=== PATIENT | male | born 1990 | race Caucasian/White ===

== ENCOUNTER 2017-08-10 16:00 | Inpatient (IN) | payer OTHER ==
--- NOTE | 2017-08-10 16:12 | ED Physician Chart ---
ED Chief Complaint/HPI - Patient Information Date Seen:: 08/10/17 Time Seen:: 16:01 Chief Complaint:: Intermittent abdominal cramp for 4 days. History of Present Illness:: Pt walked in for the above reason. Pt has had intermttent diffuse abdominal cramp for past 4 days. No N/V/D. Last BM at about 1 pm, normal in color/ consistency but small in quantity. No fever or lightheadedness. No dysuria, urgency or frequency with urination. No gross hematuria. Abdominal cramp can be precipitated and aggravated with food ingestion, improved with lying down. Pt's diet primarily consists of meat with little vegetable. Pt states that his pain at the present is tolerable and does not need pain control. Allergies:: Allergies Allergy/AdvReac Type Severity Reaction Status Date / Time No Known Allergies Allergy Verified 08/10/17 16:04 Vitals:: see Nurse Note. Historian:: Patient Family MD/PCP:: Dr. Bennett LMP:: N/A Review:: Nurse's Note Reviewed ED Review of Systems - Review of Systems General/Constitutional: No fever, No chills, No weight loss, No weakness, No edema, No loss of appetite Skin: No skin lesions, No rash, No bruising Head: No headache, No light-headedness Eyes: No loss of vision, No pain, No diplopia ENT: No earache, No nasal drainage, No sore throat, No tinnitus Neck: No neck pain, No swelling, No stiffness, No mass noted Cardio Vascular: No chest pain, No palpitations, No PND, No orthopnea, No edema Pulmonary: No SOB, No cough, No wheezing GI: No nausea, No vomiting, No diarrhea, Pain, No melena, No hematochezia, No constipation, No hematemesis G/U: No dysuria, No frequency, No hematuria Musculoskeletal: No bone or joint pain, No back pain, No muscle pain Endocrine: No polyuria, No polydipsia Psychiatric: No prior psych history Hematopoietic: No bruising, No lymphadenopathy Allergic/Immuno: No urticaria, No angioedema Neurological: No syncope, No focal symptoms, No weakness, No paresthesia, No headache, No dizziness, No confusion ED Past Medical History - Past Medical History Past Medical History: No significant medical hx Family History: Diabetes Melitus (father, MGF), Cancer (MGM) Social History: Smoker (/ ppd. Patient has been informed about health risks associated with chronic tobacco use and has been advised to quit. Pt has been encouraged to enroll in a smoking cessation program. Pt acknowledges understanding.), Alcohol (rare), Illicit Drug Use (marijuana. The has been informed about healthr risks associated with marijuana use and has been informed to quit. Pt acknowledges understanding.), Single, Employed, Other (Pt with his significant other and children.) Employment:: hole digger truck driver. Surgical History: other (L knee arthroscopic surgery at age 14) Psychiatricy History: None Medication: Reviewed Family Medical History - Family Member Maternal History Unknown: Yes ED Physical Exam - Physical Examination General/Constitutional: Awake, Well-developed, well-nourished, Alert, No distress, GCS 15, Non-toxic appearing, Ambulatory Other Gen/Cons comments:: Breathes comfortably, speaks clearly, interacts normally, and ambulates without difficulty. Head: Atraumatic Eyes: Lids, conjuctiva normal, PERRL, EOMI Other Eyes comments:: Anicteric sclera. Skin: Nl inspection, No rash, No skin lesions, No ecchymosis, Well hydrated, No lymphadenopathy ENMT: External ears, nose nl, Nasal exam nl, Lips, teeth, gums nl, Oropharynx nl Neck: Nontender, Full ROM w/o pain, No nuchal rigidity, No mass, No stridor Respiratory: Nl effort/Exclusion, Clear to Auscultation, No Wheeze/Rhonchi/Rales Cardio Vascular: RRR, No murmur, gallop, rubs, NL S1 S2 GI: No organomegaly, No hernia, Normal BS's, Nondistended, No mass/bruits, No McBurney tenderness Other GI comments:: Obese but soft. Vague diffuse tenderness at mid lower abdomen, primarily in LLQ. Normactive BS x 4. No R/G. No HSM. : No CVA tenderness Extremities: No tenderness or effusion, Full ROM, normal strength in all extremities, No edema, Normal digits & nails Neuro/Psych: Alert/oriented (oriented x 3.), Mood normal, Normal gait, No focal deficits Misc: normal gait, Normal back, No paraspinal tenderness ED Labs/Radiology/EKG Results - Lab Results Results: Laboratory Tests 08/10/17 08/10/17 08/10/17 16:36 16:36 16:36 WBC 15.5 H RBC 5.05 Hgb 14.8 Hct 43.5 MCV 86.2 MCH 29.2 MCHC Differential 33.9 RDW 12.2 Plt Count 213 MPV 8.1 Neutrophils % 80.5 H Lymphocytes % 10.1 L Monocytes % 7.9 Eosinophils % 1.4 Basophils % 0.1 PT 10.0 INR 0.96 PTT (Actin FS) 27.0 Sodium 136 Potassium 4.0 Chloride 109 H Carbon Dioxide 24.2 Anion Gap 6.8 L BUN 12 Creatinine 0.8 Est GFR ( Amer) > 60.0 Est GFR (Non-Af Amer) > 60.0 BUN/Creatinine Ratio 15.0 Glucose 94 Whole Bld Lactic Acid Calcium 8.6 Total Bilirubin 0.6 AST 12 L ALT 13 Alkaline Phosphatase 65 Total Protein 6.6 Albumin 4.0 L Globulin 2.6 Albumin/Globulin Ratio 1.5 Amylase 20 L Lipase 7 L Urine Source Urine Color Urine Clarity Urine pH Ur Specific [place] Urine Protein Urine Glucose (UA) Urine Ketones Urine Blood Urine Nitrate Urine Bilirubin Urine Urobilinogen Ur Leukocyte Esterase Urine RBC Urine WBC Ur Epithelial Cells Urine Bacteria Urine Mucus 08/10/17 08/10/17 16:36 16:50 WBC RBC Hgb Hct MCV MCH MCHC Differential RDW Plt Count MPV Neutrophils % Lymphocytes % Monocytes % Eosinophils % Basophils % PT INR PTT (Actin FS) Sodium Potassium Chloride Carbon Dioxide Anion Gap BUN Creatinine Est GFR ( Amer) Est GFR (Non-Af Amer) BUN/Creatinine Ratio Glucose Whole Bld Lactic Acid 0.67 Calcium Total Bilirubin AST ALT Alkaline Phosphatase Total Protein Albumin Globulin Albumin/Globulin Ratio Amylase Lipase Urine Source CLEAN C Urine Color YELLOW Urine Clarity CLEAR Urine pH 6.0 Ur Specific [place] 1.020 Urine Protein NEGATIVE Urine Glucose (UA) NEGATIVE Urine Ketones NEGATIVE Urine Blood NEGATIVE Urine Nitrate NEGATIVE Urine Bilirubin NEGATIVE Urine Urobilinogen 0.2 Ur Leukocyte Esterase NEGATIVE Urine RBC NONE SEEN Urine WBC 0-2 Ur Epithelial Cells OCCASIONAL Urine Bacteria NONE SEEN Urine Mucus FEW - Radiology Results Results: CT abdomen and pelvis without contrast: Diverticulitis of the sigmoid colon, surrounding inflammatory changes and trace free fluid. No abscess or free air. Fatty liver. 3 mm right renal stone, no hydro. Retro-aortic left renal vein incidentally noted. Official report per Dr. Sander العراقي, radiologist. ED Septic Shock - . Is Septic Shock (SBP<90, OR Lactate>4 mmol\L) present?: No ED Reassessment (Disposition) - Reassessment Reassessment:: 1657 Pt states that his pain is more intense now. Pt requests pain control. [address] report just became available. Lab and CT findings have been reviewed with pt. Management plan has been discussed. Pt requests more pain control. Pt is to be given Dilaudid one mg IV. Pt is to be given Zosyn 3.375 gm also. 2019 Pt feels better and does not need more pain control. Pt still has significant tenderness in LLQ with palpation. Admitting physician is to be contacted. 2027 Case was discussed with Dr. Saunders with pertinent H & P, CT and lab findings reviewed. Pt is to be admitted Med/Surg Unit under his care. Reassessment Condition:: Improved - Diagnosis Diagnosis:: Diverticulitis. Incidental findings of R renal stone. - Patient Disposition Admitted to:: Med/Surg Time:: 20:30 Condition at Disposition:: Stable, Improved
[2017-08-10 16:43] LABS: % BASOPHILS 0.1 % (0.0-2.0); % EOSINOPHILS 1.4 % (0.0-5.0); % LYMPHOCYTES 10.1 % (20.0-50.0); % MONOCYTES 7.9 % (2.0-10.0); % NEUTROPHILS 80.5 % (40.0-80.0); HEMATOCRIT 43.5 % (41.0-60); HEMOGLOBIN 14.8 gm/dL (12-16); MEAN CELL VOLUME 86.2 fl (80-99); MEAN CORPUSCULAR HEMOGLOBIN 29.2 pg (26.0-30.0); MEAN CORPUSCULAR HGB CONC 33.9 pg (28.0-36.0); MEAN PLATELET VOLUME 8.1 fl; NEUTROPHILE ABSOLUTE 12.5 Th/cmm (1.8-8.0); PLATELET COUNT 213 Th/cmm (150-400); RED BLOOD COUNT 5.05 Mil/cmm (4.30-5.70); RED CELL DISTRIBUTION WIDTH 12.2 % (11.5-20.0)
[2017-08-10 16:47] LABS: WHITE BLOOD COUNT 15.5 Th/cmm (4.8-10.8)
[2017-08-10 16:55] LABS: INR 0.96 (0.5-1.4)
[2017-08-10 16:58] LABS: ALB/GLOB RATIO 1.5 (1.0-1.8); ALKALINE PHOSPHATASE 65 U/L (34-104); AMYLASE SERUM 20 U/L (29-103); ANION GAP 6.8 (7.0-16.0); BILIRUBIN,TOTAL 0.6 mg/dL (0.3-1.0); BUN - UREA NITROGEN 12 mg/dL (7-25); CALCIUM SERUM 8.6 mg/dL (8.6-10.3); CARBON DIOXIDE 24.2 mEq/L (21.0-31.0); CHLORIDE 109 mEq/L (98-107); CREATININE - SERUM 0.8 mg/dL (0.7-1.3); GLUCOSE 94 mg/dL (70-105); LIPASE 7 U/L (11-82); SGOT 12 U/L (13-39); SGPT/ALT 13 U/L (7-52); SODIUM SERUM 136 mEq/L (136-145)
[2017-08-10] MEDS ORDERED: HYDROmorphone 1 mg/mL 1mL Syr IVP STA ×2 (16:59→18:54)
[2017-08-10 17:01] LABS: URINE BILIRUBIN NEGATIVE (NEGATIVE); URINE BLOOD NEGATIVE (NEGATIVE); URINE GLUCOSE (UA) NEGATIVE (NEGATIVE); URINE KETONE NEGATIVE (NEGATIVE); URINE PROTEIN NEGATIVE (NEGATIVE); URINE UROBILINOGEN 0.2 E.U./dL (0.2 - 1.0)
[2017-08-10] MEDS ORDERED: HYDROmorphone 1 mg/mL 1mL Syr ONE ×2 (17:01→18:57)
[2017-08-10 17:03] LABS: URINE COLOR YELLOW
[2017-08-10 17:05] LABS: URINE BACTERIA NONE SEEN /hpf (NONE SEEN); URINE EPITHELIAL CELLS OCCASIONAL /lpf (FEW); URINE RBC NONE SEEN /hpf (0-5); URINE WBC 0-2 /hpf (0-5)
[2017-08-10] MEDS ORDERED: Piperacillin Sodium/Tazobact 3.375 gm Vial IV ONE (21:06)
[2017-08-10] MEDS ORDERED: Sodium Chloride 0.9% 1,000 ML IV ONE (21:18)
[2017-08-10] MEDS ORDERED: HYDROmorphone 1 mg/mL 1mL Syr IVP PRN (21:18)
[2017-08-10] MEDS ORDERED: metroNIDAZOLE 500 mg/100 mL Premix Bag IV SCH (21:30)
[2017-08-10] MEDS ORDERED: HYDROmorphone 1 mg/mL 1mL Syr IVP ONE (21:52)
[2017-08-10] MEDS: Levofloxacin 750mg/150mL 750 MG/150 ML BAG IV SCH (23:29)
[2017-08-11] MEDS: HYDROmorphone 1 mg/mL 1mL Syr IVP PRN ×2 (01:45→07:39)
[2017-08-11] MEDS: metroNIDAZOLE 500 mg/100 mL Premix Bag IV SCH ×2 (04:54→12:19)
--- NOTE | 2017-08-11 07:35 | Diagnostic Imaging Report ---
Exam: CT examination abdomen pelvis. HISTORY: Pain. Total DLP equals 981 CTDI equals 17.6 Findings: Multiple contiguous thin section of the abdomen pelvis obtained from lower thorax to pubic symphysis without the administration of oral or intravenous contrast material. No prior studies available for comparison. The study demonstrates normal density liver parenchyma. The pancreas and spleen are normal. The gallbladder is intact. The adrenal glands are normal. The kidneys demonstrate no evidence of obstructive uropathy. 2 mm nonobstructing right renal calculus is noted. The appendix is intact. There is evidence left lower quadrant diverticulosis and diverticulitis of sigmoid colon with surrounding inflammatory changes to the mesentery. Trace of free fluid is noted in the pelvic area. Bony structures demonstrate no evidence for lytic or blastic changes Urinary bladder is intact. IMPRESSION: 1. Diverticulitis of sigmoid colon with surrounding edema and mesenteric inflammation. 2. 2 mm nonobstructing right renal calculus.
--- NOTE | 2017-08-11 08:56 | History and Physical ---
History of Present Illness - HPI Chief Complaint: Abdominal pain HPI: Patient refer that for 5 days he has having lower abdominal pain that increased with food. Pain becomes worse and he decided to come to ER. Vital Signs: Last Vital Signs Temp 98.1 F 08/11/17 07:54 Pulse 67 08/11/17 07:54 Resp 20 08/11/17 07:54 BP 114/75 08/11/17 07:54 Pulse Ox 98 08/11/17 07:54 Past Medical History Cardiovascular: Report: No Pertinent Hx Pulmonary: Report: No Pertinent Hx LEATHER STITCHER: Report: No Pertinent Hx GI: Report: No Pertinent Hx Psych: Report: No Pertinent Hx, Addictions Rheumatologic: Report: No pertinent Hx Infectious Disease: Report: No Pertinent Hx Renal/: Report: No Pertinent Hx Endocrine: Report: No Pertinent Hx Dermatology: Report: No Pertinent Hx - Past Surgical History Past Surgical History: Other (Left knee surgery) Family Medical History - Family Member Maternal History Unknown: Yes Hx Family Diabetes: Yes FATHER Living Status: Still Living Hx Family Diabetes: Yes Other Medical History: COLON CA Social History Smoke: <1 pack per day Alcohol: Occassional Drugs: Marijuana Lives: With Family Domestic Violence: Negative - Medications Home Medications: Home Medication Medication Instructions Recorded Type NK [No Home Meds] 08/10/17 History - Allergies Allergies/Adverse Reactions: Allergies Allergy/AdvReac Type Severity Reaction Status Date / Time No Known Allergies Allergy Verified 08/10/17 16:04 Review of Systems - Review of Systems Constitutional: Report: No Significant Eyes: Report: No Significant ENT: Report: No Significant Respiratory: Report: No Significant Cardiovascular: Report: No Significant Gastrointestinal: Report: Abdominal Pain Genitourinary: Report: No Significant Musculoskeletal: Report: No Significant Skin: Report: No Significant Neurological: Report: No Significant Physical Exam - Physical Exam HEENT: Report: Ears Nose Throat within normal limits Neck: Report: Within normal limits Cardiovascular Systems: Report: Regular, Rate and Rhythm Respiratory: Report: Breath Sounds are within normal limits Abdomen: Report: Tender to palpation (Bowel sound diminished) Back: Report: Inspection of back is within normal limits. Extremities: Report: Non-tender to palpation. Skin: Report: Color of skin is within normal limits, Warm, Dry Neuro/Psych: Report: Mood affect is within normal limits - Lab Results All Lab Results last 24 hours: Laboratory Last Values WBC 15.5 Th/cmm (4.8-10.8) H 08/10/17 16:36 RBC 5.05 Mil/cmm (4.30-5.70) 08/10/17 16:36 Hgb 14.8 gm/dL (12-16) 08/10/17 16:36 Hct 43.5 % (41.0-60) 08/10/17 16:36 MCV 86.2 fl (80-99) 08/10/17 16:36 MCH 29.2 pg (26.0-30.0) 08/10/17 16:36 MCHC Differential 33.9 pg (28.0-36.0) 08/10/17 16:36 RDW 12.2 % (11.5-20.0) 08/10/17 16:36 Plt Count 213 Th/cmm (150-400) 08/10/17 16:36 MPV 8.1 fl 08/10/17 16:36 Neutrophils % 80.5 % (40.0-80.0) H 08/10/17 16:36 Lymphocytes % 10.1 % (20.0-50.0) L 08/10/17 16:36 Monocytes % 7.9 % (2.0-10.0) 08/10/17 16:36 Eosinophils % 1.4 % (0.0-5.0) 08/10/17 16:36 Basophils % 0.1 % (0.0-2.0) 08/10/17 16:36 PT 10.0 SECONDS (9.5-11.5) 08/10/17 16:36 INR 0.96 (0.5-1.4) 08/10/17 16:36 PTT (Actin FS) 27.0 SECONDS (26.0-38.0) 08/10/17 16:36 Sodium 136 mEq/L (136-145) 08/10/17 16:36 Potassium 4.0 mEq/L (3.5-5.1) 08/10/17 16:36 Chloride 109 mEq/L (98-107) H 08/10/17 16:36 Carbon Dioxide 24.2 mEq/L (21.0-31.0) 08/10/17 16:36 Anion Gap 6.8 (7.0-16.0) L 08/10/17 16:36 BUN 12 mg/dL (7-25) 08/10/17 16:36 Creatinine 0.8 mg/dL (0.7-1.3) 08/10/17 16:36 Est GFR ( Amer) > 60.0 ml/min (>90) 08/10/17 16:36 Est GFR (Non-Af Amer) > 60.0 ml/min 08/10/17 16:36 BUN/Creatinine Ratio 15.0 08/10/17 16:36 Glucose 94 mg/dL (70-105) 08/10/17 16:36 Whole Bld Lactic Acid 0.67 mmol/L (0.60-1.99) 08/10/17 16:36 Calcium 8.6 mg/dL (8.6-10.3) 08/10/17 16:36 Total Bilirubin 0.6 mg/dL (0.3-1.0) 08/10/17 16:36 AST 12 U/L (13-39) L 08/10/17 16:36 ALT 13 U/L (7-52) 08/10/17 16:36 Alkaline Phosphatase 65 U/L (34-104) 08/10/17 16:36 Total Protein 6.6 gm/dL (6.0-8.3) 08/10/17 16:36 Albumin 4.0 gm/dL (4.2-5.5) L 08/10/17 16:36 Globulin 2.6 gm/dL 08/10/17 16:36 Albumin/Globulin Ratio 1.5 (1.0-1.8) 08/10/17 16:36 Amylase 20 U/L (29-103) L 08/10/17 16:36 Lipase 7 U/L (11-82) L 08/10/17 16:36 Urine Source CLEAN C 08/10/17 16:50 Urine Color YELLOW 08/10/17 16:50 Urine Clarity CLEAR (CLEAR) 08/10/17 16:50 Urine pH 6.0 (4.6 - 8.0) 08/10/17 16:50 Ur Specific [place] 1.020 (1.005-1.030) 08/10/17 16:50 Urine Protein NEGATIVE mg/dL (NEGATIVE) 08/10/17 16:50 Urine Glucose (UA) NEGATIVE mg/dL (NEGATIVE) 08/10/17 16:50 Urine Ketones NEGATIVE mg/dL (NEGATIVE) 08/10/17 16:50 Urine Blood NEGATIVE (NEGATIVE) 08/10/17 16:50 Urine Nitrate NEGATIVE (NEGATIVE) 08/10/17 16:50 Urine Bilirubin NEGATIVE (NEGATIVE) 08/10/17 16:50 Urine Urobilinogen 0.2 E.U./dL (0.2 - 1.0) 08/10/17 16:50 Ur Leukocyte Esterase NEGATIVE (NEGATIVE) 08/10/17 16:50 Urine RBC NONE SEEN /hpf (0-5) 08/10/17 16:50 Urine WBC 0-2 /hpf (0-5) 08/10/17 16:50 Ur Epithelial Cells OCCASIONAL /lpf (FEW) 08/10/17 16:50 Urine Bacteria NONE SEEN /hpf (NONE SEEN) 08/10/17 16:50 Urine Mucus FEW /lpf (FEW) 08/10/17 16:50 - Assessment Assessment: Current Active Problems Problem Status Onset LOWER ABDOMINAL PAIN Acute Patientb is awake, alert in some distress secondary to abdominal pain. Dx: Diverticulitis, Renal stone - Plan Plan: Patient is on IV NS, NPO, Metronidazole, Levaquin, Dilaudid, Toradol. Consult with GI requested.
[2017-08-11] MEDS ORDERED: HYDROmorphone 1 mg/mL 1mL Syr IVP STA (09:11)
[2017-08-11] MEDS: Sodium Chloride 0.9% 1,000 ML IV SCH ×2 (09:25→21:04)
[2017-08-11] MEDS: HYDROmorphone 2 mg/mL 1mL Vial IVP PRN ×4 (12:19→21:03)
[2017-08-11] MEDS ORDERED: Probiotic Screen MC PRN (15:30)
--- NOTE | 2017-08-11 22:27 | Consultation ---
DATE OF CONSULTATION: 08/11/2017 INPATIENT GASTROINTESTINAL CONSULTATION: REFERRING PHYSICIAN: Dr. Saunders. REASON FOR CONSULTATION: Diverticulitis. HISTORY OF PRESENT ILLNESS: This is a 27-year-old male, who has had diverticulitis in the past and over the last 5 days had been having left lower quadrant abdominal pain that is getting progressively worse and therefore he came to the hospital for further evaluation. He had a CT scan done, which suggested that he has diverticulitis. He denies having any melena or hematochezia. PAST MEDICAL HISTORY: Diverticulitis. PAST SURGICAL HISTORY: None. FAMILY HISTORY: Significant for diverticulitis. SOCIAL HISTORY: Smokes tobacco. Drinks alcohol, but not heavy. ALLERGIES: None. CURRENT MEDICATIONS: Dilaudid, Toradol, Levaquin, Flagyl, Protonix. REVIEW OF SYSTEMS: Ten point review of system was performed and the pertinent positive was diverticulitis. All other systems were otherwise negative. PHYSICAL EXAMINATION: VITAL SIGNS: Temperature 98.1, breathing 18, pulse of 67, blood pressure 108/72, satting 99%. GENERAL: In no apparent distress. EYES: Anicteric, normal conjunctivae. HEENT: Normocephalic, atraumatic. Moist mucous membranes. NECK: Soft, supple. CHEST: Clear. No effort. CARDIOVASCULAR: Regular rate and rhythm. ABDOMEN: Soft, nondistended, tender over left lower quadrant. No rebound or guarding. SKIN: Warm, dry. EXTREMITIES: Reveal no cyanosis. PSYCHOLOGIC: Alert and oriented x 3. LABORATORY DATA: Show white count of 15.5, hemoglobin 14.8, platelets of 213. INR is 0.96. LFTs were within normal limits. Lipase within normal limits. CT of the abdomen and pelvis shows diverticulitis located in the sigmoid colon. IMPRESSION: This is a 27-year-old male with severe left lower quadrant pain consistent with acute diverticulitis, feels that he is getting worse and his family is requesting for additional imaging to see if there are any changes. PLAN: 1. Order a CT of the abdomen and pelvis contrast. 2. Continue antibiotics. 3. also consider surgical evaluation per primary care provider/hospitalist. 4. The patient should also consider an outpatient colonoscopy when the symptoms have resolved to map out his colon. Thank you for allowing me to participate. Please call me if you have any questions. [facility]# [phone]
[2017-08-11] MEDS: Levofloxacin 750mg/150mL 750 MG/150 ML BAG IV SCH (23:15)
[2017-08-12] MEDS: HYDROmorphone 2 mg/mL 1mL Vial IVP PRN ×6 (01:42→20:54)
[2017-08-12 05:52] LABS: % BASOPHILS 0.2 % (0.0-2.0); % EOSINOPHILS 3.2 % (0.0-5.0); % LYMPHOCYTES 23.5 % (20.0-50.0); % MONOCYTES 10.7 % (2.0-10.0); % NEUTROPHILS 62.4 % (40.0-80.0); HEMATOCRIT 40.6 % (41.0-60); HEMOGLOBIN 13.5 gm/dL (12-16); MEAN CELL VOLUME 86.8 fl (80-99); MEAN CORPUSCULAR HEMOGLOBIN 28.8 pg (26.0-30.0); MEAN CORPUSCULAR HGB CONC 33.3 pg (28.0-36.0); MEAN PLATELET VOLUME 8.3 fl; NEUTROPHILE ABSOLUTE 5.9 Th/cmm (1.8-8.0); PLATELET COUNT 197 Th/cmm (150-400); RED BLOOD COUNT 4.68 Mil/cmm (4.30-5.70); RED CELL DISTRIBUTION WIDTH 12.4 % (11.5-20.0); WHITE BLOOD COUNT 9.4 Th/cmm (4.8-10.8)
[2017-08-12 06:09] LABS: ALB/GLOB RATIO 1.5 (1.0-1.8); ALKALINE PHOSPHATASE 47 U/L (34-104); BILIRUBIN,TOTAL 0.5 mg/dL (0.3-1.0); BUN - UREA NITROGEN 10 mg/dL (7-25); BUN/CREATININE RATIO 14.3; CALCIUM SERUM 8.4 mg/dL (8.6-10.3); CARBON DIOXIDE 23.8 mEq/L (21.0-31.0); CHLORIDE 105 mEq/L (98-107); CREATININE - SERUM 0.7 mg/dL (0.7-1.3); GLUCOSE 88 mg/dL (70-105); POTASSIUM SERUM 3.8 mEq/L (3.5-5.1); SGOT 8 U/L (13-39); SGPT/ALT 8 U/L (7-52); SODIUM SERUM 133 mEq/L (136-145)
--- NOTE | 2017-08-12 07:09 | General Progress Note ---
Subjective - Review of Systems Service Date: 08/12/17 Subjective: Pain is less Objective - Results Result Diagrams: 08/12/17 05:10 08/12/17 05:10 Recent Labs: Laboratory Last Values WBC 9.4 Th/cmm (4.8-10.8) D 08/12/17 05:10 RBC 4.68 Mil/cmm (4.30-5.70) 08/12/17 05:10 Hgb 13.5 gm/dL (12-16) 08/12/17 05:10 Hct 40.6 % (41.0-60) L 08/12/17 05:10 MCV 86.8 fl (80-99) 08/12/17 05:10 MCH 28.8 pg (26.0-30.0) 08/12/17 05:10 MCHC Differential 33.3 pg (28.0-36.0) 08/12/17 05:10 RDW 12.4 % (11.5-20.0) 08/12/17 05:10 Plt Count 197 Th/cmm (150-400) 08/12/17 05:10 MPV 8.3 fl 08/12/17 05:10 Neutrophils % 62.4 % (40.0-80.0) 08/12/17 05:10 Lymphocytes % 23.5 % (20.0-50.0) 08/12/17 05:10 Monocytes % 10.7 % (2.0-10.0) H 08/12/17 05:10 Eosinophils % 3.2 % (0.0-5.0) 08/12/17 05:10 Basophils % 0.2 % (0.0-2.0) 08/12/17 05:10 PT 10.0 SECONDS (9.5-11.5) 08/10/17 16:36 INR 0.96 (0.5-1.4) 08/10/17 16:36 PTT (Actin FS) 27.0 SECONDS (26.0-38.0) 08/10/17 16:36 Sodium 133 mEq/L (136-145) L 08/12/17 05:10 Potassium 3.8 mEq/L (3.5-5.1) 08/12/17 05:10 Chloride 105 mEq/L (98-107) 08/12/17 05:10 Carbon Dioxide 23.8 mEq/L (21.0-31.0) 08/12/17 05:10 Anion Gap 8.0 (7.0-16.0) 08/12/17 05:10 BUN 10 mg/dL (7-25) 08/12/17 05:10 Creatinine 0.7 mg/dL (0.7-1.3) 08/12/17 05:10 Est GFR ( Amer) > 60.0 ml/min (>90) 08/12/17 05:10 Est GFR (Non-Af Amer) > 60.0 ml/min 08/12/17 05:10 BUN/Creatinine Ratio 14.3 08/12/17 05:10 Glucose 88 mg/dL (70-105) 08/12/17 05:10 Whole Bld Lactic Acid 0.67 mmol/L (0.60-1.99) 08/10/17 16:36 Calcium 8.4 mg/dL (8.6-10.3) L 08/12/17 05:10 Total Bilirubin 0.5 mg/dL (0.3-1.0) 08/12/17 05:10 AST 8 U/L (13-39) L 08/12/17 05:10 ALT 8 U/L (7-52) 08/12/17 05:10 Alkaline Phosphatase 47 U/L (34-104) 08/12/17 05:10 Total Protein 5.9 gm/dL (6.0-8.3) L 08/12/17 05:10 Albumin 3.5 gm/dL (4.2-5.5) L 08/12/17 05:10 Globulin 2.4 gm/dL 08/12/17 05:10 Albumin/Globulin Ratio 1.5 (1.0-1.8) 08/12/17 05:10 Amylase 20 U/L (29-103) L 08/10/17 16:36 Lipase 7 U/L (11-82) L 08/10/17 16:36 Urine Source CLEAN C 08/10/17 16:50 Urine Color YELLOW 08/10/17 16:50 Urine Clarity CLEAR (CLEAR) 08/10/17 16:50 Urine pH 6.0 (4.6 - 8.0) 08/10/17 16:50 Ur Specific [place] 1.020 (1.005-1.030) 08/10/17 16:50 Urine Protein NEGATIVE mg/dL (NEGATIVE) 08/10/17 16:50 Urine Glucose (UA) NEGATIVE mg/dL (NEGATIVE) 08/10/17 16:50 Urine Ketones NEGATIVE mg/dL (NEGATIVE) 08/10/17 16:50 Urine Blood NEGATIVE (NEGATIVE) 08/10/17 16:50 Urine Nitrate NEGATIVE (NEGATIVE) 08/10/17 16:50 Urine Bilirubin NEGATIVE (NEGATIVE) 08/10/17 16:50 Urine Urobilinogen 0.2 E.U./dL (0.2 - 1.0) 08/10/17 16:50 Ur Leukocyte Esterase NEGATIVE (NEGATIVE) 08/10/17 16:50 Urine RBC NONE SEEN /hpf (0-5) 08/10/17 16:50 Urine WBC 0-2 /hpf (0-5) 08/10/17 16:50 Ur Epithelial Cells OCCASIONAL /lpf (FEW) 08/10/17 16:50 Urine Bacteria NONE SEEN /hpf (NONE SEEN) 08/10/17 16:50 Urine Mucus FEW /lpf (FEW) 08/10/17 16:50 - Physical Exam Vitals and I&O: Vital Signs Temp 98 F 08/12/17 04:00 Pulse 64 08/12/17 04:00 Resp 19 08/12/17 04:00 BP 107/66 08/12/17 04:00 Pulse Ox 98 08/12/17 04:00 Intake & Output 08/11/17 08/12/17 08/12/17 18:59 06:59 18:59 Intake Total 1000 Balance 1000 Weight (lbs) 153.314 kg 153.314 kg Intake: Intake, IV Amount 1000 Sodium Chloride 0.9% 1, 1000 000 ml @ 125 mls/hr IV . Q8H [facility] Rx#:[id number] Oral 0 Other: # Voids 2 # Bowel Movements 0 Active Medications: Current Medications Hydromorphone HCl (Dilaudid) 2 mg IVP Q3HR PRN PRN Reason: Severe Pain Stop: 10/09/17 21:52 Last Admin: 08/12/17 01:42 Dose: 2 mg Levofloxacin (Levaquin Pb) 750 mg in 150 mls @ 100 mls/hr IV Q24HR [facility] Stop: 10/09/17 22:59 Last Admin: 08/11/17 23:15 Dose: 100 mls/hr Sodium Chloride (Nacl 0.9%) 1,000 mls @ 125 mls/hr IV .Q8H [facility] Stop: 10/10/17 08:59 Last Admin: 08/11/17 21:04 Dose: 125 mls/hr Ketorolac Tromethamine (Toradol) 30 mg IVP Q6HR PRN PRN Reason: MILD PAIN Stop: 10/09/17 21:53 Last Admin: 08/12/17 03:56 Dose: 30 mg Lactobacillus Rhamnosus (Culturelle) 1 each PO DAILY [facility] Stop: 10/11/17 08:59 Metronidazole (Flagyl) 500 mg PO TID [facility] Stop: 10/10/17 12:59 Last Admin: 08/11/17 21:03 Dose: 500 mg Miscellaneous (Probiotic Screen) 1 ea [facility] PRN PRN PRN Reason: PROTOCOL Stop: 10/10/17 15:29 Ondansetron HCl (Zofran) 4 mg IV Q6H PRN PRN Reason: Nausea / Vomiting Stop: 10/10/17 20:44 Pantoprazole Sodium (Protonix) 40 mg IVP DAILY [facility] Stop: 10/10/17 08:59 Last Admin: 08/11/17 09:20 Dose: 40 mg General: Alert, Oriented x3, Cooperative, No acute distress HEENT: Atraumatic Neck: Supple Cardiovascular: Regular rate Lungs: Clear to auscultation Abdomen: Soft, Tender Extremities: Other (No edema) Skin: Other (Warm and dry) Psych/Mental Status: Mental status NL - Procedures Procedures: Procedures Procedure Code Date EXCIS KNEE SEMILUN CARTL 80.6 03/26/05 KNEE ARTHROSCOPY/SURGERY 76670 03/26/05 KNEE ARTHROSCOPY/SURGERY 80455 03/26/05 OT ARTHROTOMY-KNEE 80.16 03/26/05 Assessment/Plan - Problem List Patient Problems: All Active Problems LOWER ABDOMINAL PAIN (Acute) - Assessment Assessment: Current Active Problems Problem Status Onset LOWER ABDOMINAL PAIN Acute Patient is awake, alert in no distress, complaining of abdominal cramps. WBC is normal, pain improved. Dx: Diverticulitis, Renal stone - Plan Plan: Patient is on IV NS, Metronidazole, Levaquin, Dilaudid, Toradol. Already evaluated by GI. Will start diet.
[2017-08-12] MEDS: Sodium Chloride 0.9% 1,000 ML IV SCH ×2 (07:44→16:21)
--- NOTE | 2017-08-12 08:18 | GI Progress Note ---
Subjective - Review of Systems Subjective: FEELING A BIT BETTER Objective - Results Result Diagrams: 08/12/17 05:10 08/12/17 05:10 Recent Labs: Laboratory Last Values WBC 9.4 Th/cmm (4.8-10.8) D 08/12/17 05:10 RBC 4.68 Mil/cmm (4.30-5.70) 08/12/17 05:10 Hgb 13.5 gm/dL (12-16) 08/12/17 05:10 Hct 40.6 % (41.0-60) L 08/12/17 05:10 MCV 86.8 fl (80-99) 08/12/17 05:10 MCH 28.8 pg (26.0-30.0) 08/12/17 05:10 MCHC Differential 33.3 pg (28.0-36.0) 08/12/17 05:10 RDW 12.4 % (11.5-20.0) 08/12/17 05:10 Plt Count 197 Th/cmm (150-400) 08/12/17 05:10 MPV 8.3 fl 08/12/17 05:10 Neutrophils % 62.4 % (40.0-80.0) 08/12/17 05:10 Lymphocytes % 23.5 % (20.0-50.0) 08/12/17 05:10 Monocytes % 10.7 % (2.0-10.0) H 08/12/17 05:10 Eosinophils % 3.2 % (0.0-5.0) 08/12/17 05:10 Basophils % 0.2 % (0.0-2.0) 08/12/17 05:10 PT 10.0 SECONDS (9.5-11.5) 08/10/17 16:36 INR 0.96 (0.5-1.4) 08/10/17 16:36 PTT (Actin FS) 27.0 SECONDS (26.0-38.0) 08/10/17 16:36 Sodium 133 mEq/L (136-145) L 08/12/17 05:10 Potassium 3.8 mEq/L (3.5-5.1) 08/12/17 05:10 Chloride 105 mEq/L (98-107) 08/12/17 05:10 Carbon Dioxide 23.8 mEq/L (21.0-31.0) 08/12/17 05:10 Anion Gap 8.0 (7.0-16.0) 08/12/17 05:10 BUN 10 mg/dL (7-25) 08/12/17 05:10 Creatinine 0.7 mg/dL (0.7-1.3) 08/12/17 05:10 Est GFR ( Amer) > 60.0 ml/min (>90) 08/12/17 05:10 Est GFR (Non-Af Amer) > 60.0 ml/min 08/12/17 05:10 BUN/Creatinine Ratio 14.3 08/12/17 05:10 Glucose 88 mg/dL (70-105) 08/12/17 05:10 Whole Bld Lactic Acid 0.67 mmol/L (0.60-1.99) 08/10/17 16:36 Calcium 8.4 mg/dL (8.6-10.3) L 08/12/17 05:10 Total Bilirubin 0.5 mg/dL (0.3-1.0) 08/12/17 05:10 AST 8 U/L (13-39) L 08/12/17 05:10 ALT 8 U/L (7-52) 08/12/17 05:10 Alkaline Phosphatase 47 U/L (34-104) 08/12/17 05:10 Total Protein 5.9 gm/dL (6.0-8.3) L 08/12/17 05:10 Albumin 3.5 gm/dL (4.2-5.5) L 08/12/17 05:10 Globulin 2.4 gm/dL 08/12/17 05:10 Albumin/Globulin Ratio 1.5 (1.0-1.8) 08/12/17 05:10 Amylase 20 U/L (29-103) L 08/10/17 16:36 Lipase 7 U/L (11-82) L 08/10/17 16:36 Urine Source CLEAN C 08/10/17 16:50 Urine Color YELLOW 08/10/17 16:50 Urine Clarity CLEAR (CLEAR) 08/10/17 16:50 Urine pH 6.0 (4.6 - 8.0) 08/10/17 16:50 Ur Specific [employer] 1.020 (1.005-1.030) 08/10/17 16:50 Urine Protein NEGATIVE mg/dL (NEGATIVE) 08/10/17 16:50 Urine Glucose (UA) NEGATIVE mg/dL (NEGATIVE) 08/10/17 16:50 Urine Ketones NEGATIVE mg/dL (NEGATIVE) 08/10/17 16:50 Urine Blood NEGATIVE (NEGATIVE) 08/10/17 16:50 Urine Nitrate NEGATIVE (NEGATIVE) 08/10/17 16:50 Urine Bilirubin NEGATIVE (NEGATIVE) 08/10/17 16:50 Urine Urobilinogen 0.2 E.U./dL (0.2 - 1.0) 08/10/17 16:50 Ur Leukocyte Esterase NEGATIVE (NEGATIVE) 08/10/17 16:50 Urine RBC NONE SEEN /hpf (0-5) 08/10/17 16:50 Urine WBC 0-2 /hpf (0-5) 08/10/17 16:50 Ur Epithelial Cells OCCASIONAL /lpf (FEW) 08/10/17 16:50 Urine Bacteria NONE SEEN /hpf (NONE SEEN) 08/10/17 16:50 Urine Mucus FEW /lpf (FEW) 08/10/17 16:50 - Physical Exam Vitals and I&O: Vital Signs Temp 98 F 08/12/17 04:00 Pulse 64 08/12/17 04:00 Resp 19 08/12/17 04:00 BP 107/66 08/12/17 04:00 Pulse Ox 98 08/12/17 04:00 Intake & Output 08/11/17 08/12/17 08/12/17 18:59 06:59 18:59 Intake Total 1000 1150 30 Balance 1000 1150 30 Weight (lbs) 153.314 kg 153.314 kg 153.314 kg Intake: Intake, IV Amount 1000 1150 Levofloxacin 750mg/150mL 150 750 mg In 150 ml @ 100 mls/hr IV Q24HR [facility] Rx#: [id number] Sodium Chloride 0.9% 1, 1000 1000 000 ml @ 125 mls/hr IV . Q8H [facility] Rx#:[id number] Oral 0 30 Other: # Voids 2 3 # Bowel Movements 0 0 Active Medications: Current Medications Hydromorphone HCl (Dilaudid) 2 mg IVP Q3HR PRN PRN Reason: Severe Pain Stop: 10/09/17 21:52 Last Admin: 08/12/17 07:43 Dose: 2 mg Levofloxacin (Levaquin Pb) 750 mg in 150 mls @ 100 mls/hr IV Q24HR [facility] Stop: 10/09/17 22:59 Last Infusion: 08/12/17 00:45 Dose: Infused Sodium Chloride (Nacl 0.9%) 1,000 mls @ 125 mls/hr IV .Q8H [facility] Stop: 10/10/17 08:59 Last Admin: 08/12/17 07:44 Dose: 125 mls/hr Ketorolac Tromethamine (Toradol) 30 mg IVP Q6HR PRN PRN Reason: MILD PAIN Stop: 10/09/17 21:53 Last Admin: 08/12/17 03:56 Dose: 30 mg Lactobacillus Rhamnosus (Culturelle) 1 each PO DAILY [facility] Stop: 10/11/17 08:59 Metronidazole (Flagyl) 500 mg PO TID [facility] Stop: 10/10/17 12:59 Last Admin: 08/11/17 21:03 Dose: 500 mg Miscellaneous (Probiotic Screen) 1 ea MC PRN PRN PRN Reason: PROTOCOL Stop: 10/10/17 15:29 Ondansetron HCl (Zofran) 4 mg IV Q6H PRN PRN Reason: Nausea / Vomiting Stop: 10/10/17 20:44 Pantoprazole Sodium (Protonix) 40 mg IVP DAILY [facility] Stop: 10/10/17 08:59 Last Admin: 08/11/17 09:20 Dose: 40 mg General: Alert, Oriented x3, Cooperative, No acute distress HEENT: Atraumatic Neck: Supple Cardiovascular: Regular rate Lungs: Clear to auscultation Abdomen: Soft, Tender Extremities: Other (No edema) Skin: Other (Warm and dry) Psych/Mental Status: Mental status NL - Procedures Procedures: Procedures Procedure Code Date EXCIS KNEE SEMILUN CARTL 80.6 03/26/05 [facility] ARTHROSCOPY/SURGERY 38393 03/26/05 [facility] ARTHROSCOPY/SURGERY 34277 03/26/05 [facility] ARTHROTOMY-KNEE 80.16 03/26/05 Assessment/Plan - Problem List Patient Problems: All Active Problems LOWER ABDOMINAL PAIN (Acute) - Assessment Assessment: 37 YO MALE WITH ACUTE SIGMOID DIVERTICULITIS SLOWLY IMPROVING WBC NORMALIZED 1.CONT ABX 2.CONSIDER OUTPATIENT COLONOSCOPY ONCE HEALED UP TO REDUCE RISK OF PERFORATION 3.AVOID SEEDS NUTS POPCORN 4.AWAIT CT A/P WITH CONTRAST
--- NOTE | 2017-08-12 08:42 | Diagnostic Imaging Report ---
Exam: CT examination of the abdomen pelvis HISTORY: Diverticulitis Total DLP equals 922 CTDI equals 17.5 Findings: Multiple contiguous thin section of the abdomen pelvis obtained from lower thorax to pubic symphysis with administration of oral contrast material. Intravenous contrast was not utilized. The study compared to prior of 08/10/2017. The study again demonstrates diverticulitis of sigmoid colon with mesenteric induration and edema. The oral contrast has not progress to the sigmoid colon. The remaining examination unchanged upper prior study. IMPRESSION: Unchanged appearance of the left sigmoid colon diverticulitis with edema of mesentery and the thickening of the wall of the sigmoid colon compared to prior examination of 08/10/2017.
[2017-08-12] MEDS: Lactobacillus Rhamnosus 10 Billion CFU Capsule PO SCH (09:27)
[2017-08-12] MEDS: Levofloxacin 750mg/150mL 750 MG/150 ML BAG IV SCH (22:23)
[2017-08-13] MEDS: Sodium Chloride 0.9% 1,000 ML IV SCH ×2 (00:25→01:00)
[2017-08-13] MEDS: HYDROmorphone 2 mg/mL 1mL Vial IVP PRN (00:55)
[2017-08-13 05:33] LABS: % BASOPHILS 0.6 % (0.0-2.0); % EOSINOPHILS 4.6 % (0.0-5.0); % LYMPHOCYTES 29.7 % (20.0-50.0); % MONOCYTES 11.3 % (2.0-10.0); % NEUTROPHILS 53.8 % (40.0-80.0); HEMATOCRIT 40.6 % (41.0-60); HEMOGLOBIN 13.4 gm/dL (12-16); MEAN CELL VOLUME 87.2 fl (80-99); MEAN CORPUSCULAR HEMOGLOBIN 28.8 pg (26.0-30.0); MEAN PLATELET VOLUME 8.3 fl; NEUTROPHILE ABSOLUTE 3.9 Th/cmm (1.8-8.0); PLATELET COUNT 218 Th/cmm (150-400); RED BLOOD COUNT 4.66 Mil/cmm (4.30-5.70); RED CELL DISTRIBUTION WIDTH 12.2 % (11.5-20.0)
[2017-08-13 05:38] LABS: WHITE BLOOD COUNT 7.1 Th/cmm (4.8-10.8)
[2017-08-13 06:09] LABS: ALB/GLOB RATIO 1.4 (1.0-1.8); ALKALINE PHOSPHATASE 48 U/L (34-104); ANION GAP 7.6 (7.0-16.0); BILIRUBIN,TOTAL 0.3 mg/dL (0.3-1.0); BUN - UREA NITROGEN 12 mg/dL (7-25); BUN/CREATININE RATIO 13.3; CALCIUM SERUM 8.5 mg/dL (8.6-10.3); CARBON DIOXIDE 26.5 mEq/L (21.0-31.0); CHLORIDE 107 mEq/L (98-107); CREATININE - SERUM 0.9 mg/dL (0.7-1.3); GLUCOSE 113 mg/dL (70-105); POTASSIUM SERUM 4.1 mEq/L (3.5-5.1); SGOT 11 U/L (13-39); SGPT/ALT 7 U/L (7-52); SODIUM SERUM 137 mEq/L (136-145)
--- NOTE | 2017-08-13 08:38 | Discharge Summary ---
General Discharge Summary - Discharge Summary Date of Admission: 08/10/17 Admitting Diagnosis: Diverticulitis Patient Problems: All Active Problems LOWER ABDOMINAL PAIN (Acute) Discharge Date: 08/13/17 Discharge Diagnosis: Diverticulitis Laboratory Findings: Laboratory Tests 08/12/17 08/12/17 08/13/17 05:10 05:10 05:15 WBC 9.4 D 7.1 D RBC 4.68 4.66 Hgb 13.5 13.4 Hct 40.6 L 40.6 L MCV 86.8 87.2 MCH 28.8 28.8 MCHC Differential 33.3 33.0 RDW 12.4 12.2 Plt Count 197 218 MPV 8.3 8.3 Neutrophils % 62.4 53.8 Lymphocytes % 23.5 29.7 Monocytes % 10.7 H 11.3 H Eosinophils % 3.2 4.6 Basophils % 0.2 0.6 Sodium 133 L Potassium 3.8 Chloride 105 Carbon Dioxide 23.8 Anion Gap 8.0 BUN 10 Creatinine 0.7 Est GFR ( Amer) > 60.0 Est GFR (Non-Af Amer) > 60.0 BUN/Creatinine Ratio 14.3 Glucose 88 Calcium 8.4 L Total Bilirubin 0.5 AST 8 L ALT 8 Alkaline Phosphatase 47 Total Protein 5.9 L Albumin 3.5 L Globulin 2.4 Albumin/Globulin Ratio 1.5 08/13/17 05:15 WBC RBC Hgb Hct MCV MCH MCHC Differential RDW Plt Count MPV Neutrophils % Lymphocytes % Monocytes % Eosinophils % Basophils % Sodium 137 Potassium 4.1 Chloride 107 Carbon Dioxide 26.5 Anion Gap 7.6 BUN 12 Creatinine 0.9 Est GFR ( Amer) > 60.0 Est GFR (Non-Af Amer) > 60.0 BUN/Creatinine Ratio 13.3 Glucose 113 H Calcium 8.5 L Total Bilirubin 0.3 AST 11 L ALT 7 Alkaline Phosphatase 48 Total Protein 5.8 L Albumin 3.4 L Globulin 2.4 Albumin/Globulin Ratio 1.4 Hospital Course: Patient was admitted and started in metronidazole, levaquin, npo, pain control, consult with GI was done and recommendations were follow, patient improved. Treatment: IV NS, Metronidazole, Levaquin, NPO, Pain control. Condition at Discharge: Stable Disposition: PT DISCHARGED HOME Home Medications: Home Medication Medication Instructions Recorded Type NK [No Home Meds] 08/10/17 History Inpatient Medications: Current Medications Docusate Sodium (Colace) 100 mg PO BID [facility] Stop: 10/12/17 08:59 Hydromorphone HCl (Dilaudid) 2 mg IVP Q3HR PRN PRN Reason: Severe Pain Stop: 10/09/17 21:52 Last Admin: 08/13/17 00:55 Dose: 2 mg Levofloxacin (Levaquin Pb) 750 mg in 150 mls @ 100 mls/hr IV Q24HR [facility] Stop: 10/09/17 22:59 Last Infusion: 08/13/17 00:22 Dose: Infused Sodium Chloride (Nacl 0.9%) 1,000 mls @ 125 mls/hr IV .Q8H [facility] Stop: 10/10/17 08:59 Last Admin: 08/13/17 01:00 Dose: 125 mls/hr Ketorolac Tromethamine (Toradol) 30 mg IVP Q6HR PRN PRN Reason: MILD PAIN Stop: 10/09/17 21:53 Last Admin: 08/12/17 22:24 Dose: 30 mg Lactobacillus Rhamnosus (Culturelle) 1 each PO DAILY [facility] Stop: 10/11/17 08:59 Last Admin: 08/12/17 09:27 Dose: 1 each Metronidazole (Flagyl) 500 mg PO TID [facility] Stop: 10/10/17 12:59 Last Admin: 08/12/17 20:54 Dose: 500 mg Miscellaneous (Probiotic Screen) 1 ea MC PRN PRN PRN Reason: PROTOCOL Stop: 10/10/17 15:29 Ondansetron HCl (Zofran) 4 mg IV Q6H PRN PRN Reason: Nausea / Vomiting Stop: 10/10/17 20:44 Last Admin: 08/12/17 23:25 Dose: 4 mg Pantoprazole Sodium (Protonix) 40 mg IVP DAILY [facility] Stop: 10/10/17 08:59 Last Admin: 08/12/17 09:27 Dose: 40 mg Discharge Diet: Regular Consults and Follow-Up: ALONDRA BHAGAT [Other] not on staff,PCP is [Primary Care Provider] - Consulting Speciality: Other (PCP.)
[2017-08-13] MEDS: Lactobacillus Rhamnosus 10 Billion CFU Capsule PO SCH (09:13)
== END 2017-08-13 09:55 | disposition home or self-care (01) | DRG 392 ==
LOC: ER 16:00 → MSI 20:30 → TELE 21:48 → MSI 21:51
PROVIDERS: ADMIT General Practice; ATTEND General Practice
DX: K57.92 Diverticulitis of intestine, part unspecified, without perforation or abscess without bleeding (principal); Z68.41 Body mass index [BMI] 40.0-44.9, adult; N20.0 Calculus of kidney; F17.210 Nicotine dependence, cigarettes, uncomplicated; E66.9 Obesity, unspecified; Z83.3 Family history of diabetes mellitus; Z80.9 Family history of malignant neoplasm, unspecified; K57.32 Diverticulitis of large intestine without perforation or abscess without bleeding
CPT/HCPCS: 36415-UA; 80053-TC; 81001-TC; 82150-TC; 83605; 83690-TC; 85025-TC; 85610-TC; 90799; 96375; 96376; C9113; J1170; J1885; J1956; J2405; J2543; J7030

== ENCOUNTER 2017-12-25 21:53 | Emergency (ER) | payer MEDICAID, OTHER ==
[2017-12-25] MEDS ORDERED: Sodium Chloride 0.9% 1,000 ML IV ONE (22:19)
[2017-12-25] MEDS ORDERED: Morphine Sulfate 2 mg/mL 1mL Syr IV STA (22:22)
--- NOTE | 2017-12-25 22:26 | ED Physician Chart ---
ED Chief Complaint/HPI - Patient Information Date Seen:: 12/25/17 Time Seen:: 22:10 Chief Complaint:: Abdominal Pain History of Present Illness:: onset x 2 days of intermittent, diffuse, crampy lower Abd. Pain; no trauma, H/As , S/T, neck pain, C/P, SOB, cough, A/N/V/D/C, fever, chills, or urinary s/s; pt is eating and urinating well; pt last urinated 1/2 hour [employer] Allergies:: Allergies Allergy/AdvReac Type Severity Reaction Status Date / Time No Known Allergies Allergy Verified 08/10/17 16:04 Historian:: Patient Review:: Nurse's Note Reviewed ED Review of Systems - Review of Systems General/Constitutional: No fever, No chills, No weight loss, No weakness, No diaphoresis, No edema, No loss of appetite Skin: No skin lesions, No rash, No bruising Head: No headache, No light-headedness Eyes: No loss of vision, No pain, No diplopia ENT: No earache, No nasal drainage, No sore throat, No tinnitus Neck: No neck pain, No swelling, No thyromegaly, No stiffness, No mass noted Cardio Vascular: No chest pain, No palpitations, No PND, No orthopnea, No edema Pulmonary: No SOB, No cough, No sputum, No wheezing GI: Nausea, Vomiting, Diarrhea, Pain, No melena, No hematochezia, No constipation, No hematemesis G/U: No dysuria, No frequency, No hematuria, No nacturia Musculoskeletal: No bone or joint pain, No back pain, No muscle pain Endocrine: No polyuria, No polydipsia Psychiatric: No prior psych history, No depression, No anxiety, No suicidal ideation, No homicidal ideation, No auditory hallucination, No visual hallucination Hematopoietic: No bruising, No lymphadenopathy Allergic/Immuno: No urticaria, No angioedema Neurological: No syncope, No focal symptoms, No weakness, No paresthesia, No headache, No seizure, No dizziness, No confusion, No vertigo ED Past Medical History - Past Medical History Obtainable: Yes Past Medical History: PUD/GERD Family History: HTN Social History: Non Smoker, No Alcohol, No Drug Use, Single Surgical History: None Psychiatricy History: None Medication: Reviewed Family Medical History - Family Member Maternal History Unknown: Yes Hx Family Diabetes: Yes FATHER Living Status: Still Living Hx Family Diabetes: Yes ED Physical Exam - Physical Examination General/Constitutional: Awake, Well-developed, well-nourished, Alert, No distress, GCS 15, Non-toxic appearing, Ambulatory Head: Atraumatic Eyes: Lids, conjuctiva normal, PERRL, EOMI Skin: Nl inspection, No rash, No skin lesions, No ecchymosis, Well hydrated, No lymphadenopathy ENMT: External ears, nose nl, TM canals nl, Nasal exam nl, Lips, teeth, gums nl , Oropharynx nl, Tonsils nl Neck: Nontender, Full ROM w/o pain, No JVD, No nuchal rigidity, No bruit, No mass, No stridor Other Neck comments:: supple; no meningeal signs; no cervical tenderness; no bruits Respiratory: Nl effort/Exclusion, Clear to Auscultation, No Wheeze/Rhonchi/Rales Cardio Vascular: RRR, No murmur, gallop, rubs, NL S1 S2, Carotid/Femoral/Distal pulses equal bilaterally GI: No tenderness/rebounding/guarding, No organomegaly, No hernia, Normal BS's, Nondistended, No mass/bruits, No McBurney tenderness, Rectum exam nl Other GI comments:: no pulsatile masses : No CVA tenderness Extremities: No tenderness or effusion, Full ROM, normal strength in all extremities, No edema, Normal digits & nails Neuro/Psych: Alert/oriented, DTR's symmetric, Normal sensory exam, Normal motor strength, Judgement/insight normal, Mood normal, Normal gait, No focal deficits Misc: Normal back, No paraspinal tenderness ED Labs/Radiology/EKG Results - Lab Results Comments:: U/A: + Bacteria; WBCs - Radiology Results Comments:: Right Renal Stone; Diverticulosis; Inguinal Hernia - EKG Interpretations EKG Time:: 22:38 Rate & Rhythm: 75; NSR Comments:: LVH; non-specific st-t changes ED Septic Shock - . Is Septic Shock (SBP<90, OR Lactate>4 mmol\L) present?: No ED Reassessment (Disposition) - Reassessment Reassessment:: pt tolerated po fluids well in ER; pt is asymptomatic upon discharge Reassessment Condition:: Improved - Diagnosis Diagnosis:: UTI; Abdominal Pain; Diverticulosis; Abdominal Pain-resolved; AGE; Gastritis; Gastroenteritis; N/V/D; Renal Calculus; Inguinal Hernia; Non-Obstructing Kidney Stone - Aftercare/Follow up Instructions Aftercare/Follow-Up Instructions:: Counseled pt regarding lab results/diagnosis & need follow up, Refer to Discharge Instructions, Counseled pt & family regarding lab results/diagnosis & need follow up Medication Prescribed:: Rx: Doxycycline 100mg po bid x 10 days; Strain all Urine; encourage fluids - Patient Disposition Discharge/Transfer:: Home Condition at Disposition:: Stable, Improved (X-Rays Instructions; RTER prn if existing s/s reoccur and/or get worse and/or any other new s/s occur; ACIs given for all above Dx; Refer to GI/ Specialists/Service Clerk [facility]ER[facility]; F/U with PMD in one day or prn; RTER prn if concerned) ED Discharge Plan - Patient Disposition Prescriptions: Doxycycline Monohydrate 100 mg PO BID #20 tab Instructions: Kidney Stones, [id number], Urinary Tract Infection, Easy-to- Read Additional Instructions: follow up with primary doctor. take prescription as prescribed. Forms: Work Release Form
[2017-12-25 23:00] LABS: % BASOPHILS 0.4 % (0.0-2.0); % EOSINOPHILS 3.2 % (0.0-5.0); % LYMPHOCYTES 27.1 % (20.0-50.0); % MONOCYTES 7.8 % (2.0-10.0); % NEUTROPHILS 61.5 % (40.0-80.0); EOSINOPHILE ABSOLUTE 0.3 Th/cmm (0.1-0.4); HEMATOCRIT 44.3 % (41.0-60); HEMOGLOBIN 14.8 gm/dL (12-16); LYMPHOCYTE ABSOLUTE 2.2 Th/cmm (1.5-3.0); MEAN CELL VOLUME 86.6 fl (80-99); MEAN CORPUSCULAR HGB CONC 33.5 pg (28.0-36.0); MEAN PLATELET VOLUME 7.9 fl; MONOCYTE ABSOLUTE 0.6 Th/cmm (0.3-1.0); RED BLOOD COUNT 5.12 Mil/cmm (4.30-5.70); RED CELL DISTRIBUTION WIDTH 12.1 % (11.5-20.0); WHITE BLOOD COUNT 8.1 Th/cmm (4.8-10.8)
[2017-12-25] MEDS ORDERED: Morphine Sulfate 2 mg/mL 1mL Syr ONE (23:06)
[2017-12-25 23:15] LABS: PLATELET COUNT 262 Th/cmm (150-400)
[2017-12-25 23:30] LABS: URINE MICROSCOPIC INDICATED? YES; URINE SOURCE CLEAN C
[2017-12-25 23:35] LABS: ALB/GLOB RATIO 1.9 (1.0-1.8); ALBUMIN 4.3 gm/dL (4.2-5.5); ALKALINE PHOSPHATASE 78 U/L (34-104); ANION GAP 10.2 (7.0-16.0); BILIRUBIN,TOTAL 0.3 mg/dL (0.3-1.0); BUN - UREA NITROGEN 18 mg/dL (7-25); CALCIUM SERUM 9.1 mg/dL (8.6-10.3); CARBON DIOXIDE 25.8 mEq/L (21.0-31.0); CHLORIDE 105 mEq/L (98-107); CHOLESTEROL 151 mg/dL (<200); CREATININE - SERUM 0.8 mg/dL (0.7-1.3); CREATININE KINASE 209 U/L (30-223); GFR AFRICAN-AMERICAN > 60.0 ml/min (>90); GFR NON AFRICAN-AMERICAN > 60.0 ml/min; GLUCOSE 103 mg/dL (70-105); HDL -HIGH DENSITY LIPOPROTEIN 42 mg/dL (23-92); INR 0.92 (0.5-1.4); PROTHROMBIN TIME (TEST) 9.6 SECONDS (9.5-11.5); SGOT 20 U/L (13-39); SGPT/ALT 24 U/L (7-52); SODIUM SERUM 137 mEq/L (136-145); TOTAL PROTEIN,SERUM 6.6 gm/dL (6.0-8.3); TRIGLYCERIDES 167 mg/dL (<150); URINE BILIRUBIN NEGATIVE (NEGATIVE); URINE BLOOD NEGATIVE (NEGATIVE); URINE GLUCOSE (UA) NEGATIVE (NEGATIVE); URINE KETONE NEGATIVE (NEGATIVE); URINE LEUKOCYTE ESTERASE NEGATIVE (NEGATIVE); URINE NITRATE NEGATIVE (NEGATIVE); URINE PROTEIN NEGATIVE (NEGATIVE); URINE UROBILINOGEN 0.2 E.U./dL (0.2 - 1.0)
[2017-12-25 23:37] LABS: URINE CLARITY CLEAR (CLEAR); URINE COLOR YELLOW
[2017-12-25 23:45] LABS: URINE BACTERIA OCCASIONAL /hpf (NONE SEEN); URINE EPITHELIAL CELLS OCCASIONAL /lpf (FEW); URINE RBC NONE SEEN /hpf (0-5); URINE WBC 0-2 /hpf (0-5)
[2017-12-26 00:16] LABS: AMYLASE SERUM 25 U/L (29-103); LIPASE 11 U/L (11-82)
--- NOTE | 2017-12-26 08:32 | Diagnostic Imaging Report ---
Portable chest x-ray HISTORY: Pain Allowing for portable technique in a poor inspiration, the overall heart size appears normal. No focal pulmonary processes. No hilar or mediastinal abnormalities. IMPRESSION: 1. No acute pulmonary processes
--- NOTE | 2017-12-26 08:53 | Diagnostic Imaging Report ---
Exam: CT examination abdomen pelvis. HISTORY: Abdominal pain. Total DLP equals 950 CTDI equals 17.9 Findings: Multiple contiguous thin section of the pelvis obtained from lower thorax to pubic symphysis without the administration intravenous or oral contrast material. The study correlated with the previous examination of the abdomen pelvis 08/11/2017. The study demonstrates normal aeration of lung parenchyma the bases. The liver and spleen intact. The gallbladder is normal. The pancreas is normal. The kidneys demonstrate no evidence of obstructive uropathy. 1 mm calcification right kidney is noted. No free fluid appreciated The appendix is not seen. There is evidence of diverticular disease of sigmoid colon without diverticulitis. Bony structures demonstrate no evidence for lytic or blastic changes. The urinary bladder is distended. Right inguinal hernia containing fat appreciated. IMPRESSION: Diverticulosis of sigmoid colon no evidence of diverticulitis. Question 1 mm nonobstructing right renal calculus.
== END 2017-12-26 00:30 | disposition home or self-care (01) ==
LOC: ER 21:53
DX: N20.0 Calculus of kidney (principal); K52.9 Noninfective gastroenteritis and colitis, unspecified; R11.2 Nausea with vomiting, unspecified; K40.90 Unilateral inguinal hernia, without obstruction or gangrene, not specified as recurrent; N39.0 Urinary tract infection, site not specified; K57.90 Diverticulosis of intestine, part unspecified, without perforation or abscess without bleeding; K21.9 Gastro-esophageal reflux disease without esophagitis; Z87.11 Personal history of peptic ulcer disease
CPT/HCPCS: 99285; 96374; 96375; 93005; 71045; 74176; 84484; 83880; 85025; 85610; 81001; 82150; 82550; 83690; 80053; 80061; J2270; J2405; 36415-UA; J7030

== ENCOUNTER 2018-02-11 10:10 | Inpatient (IN) | payer MEDICAID ==
[2018-02-11] MEDS ORDERED: Sodium Chloride 0.9% 1,000 ML IV ONE (10:41)
[2018-02-11 11:10] LABS: % BASOPHILS 0.4 % (0.0-2.0); % LYMPHOCYTES 10.9 % (20.0-50.0); % MONOCYTES 8.3 % (2.0-10.0); % NEUTROPHILS 79.4 % (40.0-80.0); EOSINOPHILE ABSOLUTE 0.1 Th/cmm (0.1-0.4); HEMOGLOBIN 14.2 gm/dL (12-16); LYMPHOCYTE ABSOLUTE 1.3 Th/cmm (1.5-3.0); MEAN CELL VOLUME 86.7 fl (80-99); MEAN CORPUSCULAR HEMOGLOBIN 29.4 pg (26.0-30.0); MEAN CORPUSCULAR HGB CONC 33.9 pg (28.0-36.0); MEAN PLATELET VOLUME 7.8 fl; NEUTROPHILE ABSOLUTE 9.6 Th/cmm (1.8-8.0); PLATELET COUNT 246 Th/cmm (150-400); RED BLOOD COUNT 4.84 Mil/cmm (4.30-5.70); RED CELL DISTRIBUTION WIDTH 12.5 % (11.5-20.0)
[2018-02-11 11:22] LABS: INR 1.08 (0.5-1.4); PROTHROMBIN TIME (TEST) 11.2 SECONDS (9.5-11.5)
[2018-02-11 11:27] LABS: ALB/GLOB RATIO 1.4 (1.0-1.8); ALBUMIN 4.1 gm/dL (4.2-5.5); ALKALINE PHOSPHATASE 57 U/L (34-104); AMYLASE SERUM 17 U/L (29-103); ANION GAP 8.9 (7.0-16.0); BILIRUBIN,TOTAL 0.9 mg/dL (0.3-1.0); BUN - UREA NITROGEN 15 mg/dL (7-25); CALCIUM SERUM 9.4 mg/dL (8.6-10.3); CARBON DIOXIDE 27.2 mEq/L (21.0-31.0); CHLORIDE 103 mEq/L (98-107); CHOLESTEROL 156 mg/dL (<200); CREATININE - SERUM 0.9 mg/dL (0.7-1.3); CREATININE KINASE 103 U/L (30-223); GFR AFRICAN-AMERICAN > 60.0 ml/min (>90); GFR NON AFRICAN-AMERICAN > 60.0 ml/min; GLUCOSE 108 mg/dL (70-105); HDL -HIGH DENSITY LIPOPROTEIN 55 mg/dL (23-92); LIPASE 522 U/L (11-82); POTASSIUM SERUM 4.1 mEq/L (3.5-5.1); SGOT 12 U/L (13-39); SGPT/ALT 18 U/L (7-52); SODIUM SERUM 135 mEq/L (136-145); TOTAL PROTEIN,SERUM 7.1 gm/dL (6.0-8.3); TRIGLYCERIDES 53 mg/dL (<150)
--- NOTE | 2018-02-11 11:34 | ED Physician Chart ---
ED Chief Complaint/HPI - Patient Information Date Seen:: 02/11/18 Time Seen:: 10:50 Chief Complaint:: Abdominal Pain History of Present Illness:: onset x 2 days of intermittent, diffuse, crampy abdominal pain; pt denies trauma , H/As, S/T, neck pain, C/P, SOB, A/N/V/D/C, fever, chills, or urinary s/s Allergies:: Allergies Allergy/AdvReac Type Severity Reaction Status Date / Time No Known Allergies Allergy Verified 08/10/17 16:04 Vitals:: Vital Signs - 8 hr 02/11/18 10:51 Temp 99.5 F HR 90 RR 22 BP 144/78 O2 Sat % 98 Historian:: Patient Review:: Nurse's Note Reviewed ED Review of Systems - Review of Systems General/Constitutional: No fever, No chills, No weight loss, No weakness, No diaphoresis, No edema, No loss of appetite Skin: No skin lesions, No rash, No bruising Head: No headache, No light-headedness Eyes: No loss of vision, No pain, No diplopia ENT: No earache, No nasal drainage, No sore throat, No tinnitus Neck: No neck pain, No swelling, No thyromegaly, No stiffness, No mass noted Cardio Vascular: No chest pain, No palpitations, No PND, No orthopnea, No edema Pulmonary: No SOB, No cough, No sputum, No wheezing GI: No nausea, No vomiting, No diarrhea, Pain, No melena, No hematochezia, No constipation, No hematemesis G/U: No dysuria, No frequency, No hematuria, No nacturia Musculoskeletal: No bone or joint pain, No back pain, No muscle pain Endocrine: No polyuria, No polydipsia Psychiatric: No prior psych history, No depression, No anxiety, No suicidal ideation, No homicidal ideation, No auditory hallucination, No visual hallucination Hematopoietic: No bruising, No lymphadenopathy Allergic/Immuno: No urticaria, No angioedema Neurological: No syncope, No focal symptoms, No weakness, No paresthesia, No headache, No seizure, No dizziness, No confusion, No vertigo ED Past Medical History - Past Medical History Obtainable: Yes Past Medical History: No significant medical hx Family History: None Social History: Smoker, No Alcohol, No Drug Use, Single Surgical History: None Psychiatricy History: None Medication: Reviewed Family Medical History - Family Member Maternal History Unknown: Yes Hx Family Diabetes: Yes FATHER History Unknown: Yes Living Status: Still Living Hx Family Diabetes: Yes ED Physical Exam - Physical Examination General/Constitutional: Awake, Well-developed, well-nourished, Alert, No distress, GCS 15, Non-toxic appearing, Ambulatory Head: Atraumatic Eyes: Lids, conjuctiva normal, PERRL, EOMI Skin: Nl inspection, No rash, No skin lesions, No ecchymosis, Well hydrated, No lymphadenopathy ENMT: External ears, nose nl, TM canals nl, Nasal exam nl, Lips, teeth, gums nl , Oropharynx nl, Tonsils nl Neck: Nontender, Full ROM w/o pain, No JVD, No nuchal rigidity, No bruit, No mass, No stridor Respiratory: Nl effort/Exclusion, Clear to Auscultation, No Wheeze/Rhonchi/Rales Cardio Vascular: RRR, No murmur, gallop, rubs, NL S1 S2, Carotid/Femoral/Distal pulses equal bilaterally GI: No tenderness/rebounding/guarding, No organomegaly, No hernia, Normal BS's, Nondistended, No mass/bruits, No McBurney tenderness : No CVA tenderness Extremities: No tenderness or effusion, Full ROM, normal strength in all extremities, No edema, Normal digits & nails Neuro/Psych: Alert/oriented, DTR's symmetric, Normal sensory exam, Normal motor strength, Judgement/insight normal, Mood normal, Normal gait, No focal deficits Misc: Normal back, No paraspinal tenderness ED Labs/Radiology/EKG Results - Lab Results Results: Laboratory Tests 02/11/18 02/11/18 02/11/18 10:54 10:54 10:54 WBC 12.0 H RBC 4.84 Hgb 14.2 Hct 42.0 MCV 86.7 MCH 29.4 MCHC Differential 33.9 RDW 12.5 Plt Count 246 MPV 7.8 Neutrophils % 79.4 Lymphocytes % 10.9 L Monocytes % 8.3 Eosinophils % 1.0 Basophils % 0.4 PT 11.2 INR 1.08 Sodium 135 L Potassium 4.1 Chloride 103 Carbon Dioxide 27.2 Anion Gap 8.9 BUN 15 Creatinine 0.9 Est GFR ( Amer) > 60.0 Est GFR (Non-Af Amer) > 60.0 BUN/Creatinine Ratio 16.7 Glucose 108 H Whole Bld Lactic Acid Calcium 9.4 Total Bilirubin 0.9 AST 12 L ALT 18 Alkaline Phosphatase 57 Creatine Kinase 103 B-Natriuretic Peptide Total Protein 7.1 Albumin 4.1 L Globulin 3.0 Albumin/Globulin Ratio 1.4 Triglycerides 53 Cholesterol 156 LDL Cholesterol Direct 97 HDL Cholesterol 55 Amylase 17 L Lipase 522 H 02/11/18 02/11/18 10:54 10:56 WBC RBC Hgb Hct MCV MCH MCHC Differential RDW Plt Count MPV Neutrophils % Lymphocytes % Monocytes % Eosinophils % Basophils % PT INR Sodium Potassium Chloride Carbon Dioxide Anion Gap BUN Creatinine Est GFR ( Amer) Est GFR (Non-Af Amer) BUN/Creatinine Ratio Glucose Whole Bld Lactic Acid 0.64 Calcium Total Bilirubin AST ALT Alkaline Phosphatase Creatine Kinase B-Natriuretic Peptide 7.4 Total Protein Albumin Globulin Albumin/Globulin Ratio Triglycerides Cholesterol LDL Cholesterol Direct HDL Cholesterol Amylase Lipase Comments:: WBC: 12.0; Lipase: 522 - Radiology Results Comments:: CXR: NAD - EKG Interpretations EKG Time:: 10:53 Rate & Rhythm: 90; NSR Comments:: LVH; non-specific st-t changes ED Septic Shock - . Is Septic Shock (SBP<90, OR Lactate>4 mmol\L) present?: No - <6hrs of presentation: Vital Signs: Vital Signs - 8 hr 02/11/18 10:51 Temp 99.5 F HR 90 RR 22 BP 144/78 O2 Sat % 98 ED Reassessment (Disposition) - Reassessment Reassessment Condition:: Improved - Diagnosis Diagnosis:: Leukocytosis; Abdominal Pain; Pancreatitis - Aftercare/Follow up Instructions Aftercare/Follow-Up Instructions:: Counseled pt regarding lab results/diagnosis & need follow up, Counseled pt & family regarding lab results/diagnosis & need follow up - Patient Disposition Discharge/Transfer:: Acute Care w/in this hosp Accepting Physician:: Dr. Yobani Rodriguez Time Called:: 0150 Time Responded:: 12:30 Admitted to:: Med/Surg Spoke to:: Dr. Rodriguez Admitting Medical Physician:: Dr. Rodriguez Condition at Disposition:: Stable, Improved
--- NOTE | 2018-02-11 11:38 | Diagnostic Imaging Report ---
Portable chest x-ray History: Pain Allowing for portable technique and a poor inspiration, the heart size is normal. No focal pulmonary parenchymal processes. No hilar or mediastinal abnormalities. Impression: No acute abnormalities.
[2018-02-11] MEDS ORDERED: Morphine Sulfate 2 mg/mL 1mL Syr IV STA (11:56)
[2018-02-11] MEDS ORDERED: Morphine Sulfate 4 mg/mL 1mL Syr ONE (12:01)
[2018-02-11 12:05] LABS: URINE MICROSCOPIC INDICATED? YES; URINE SOURCE CLEAN C
[2018-02-11 12:07] LABS: URINE BILIRUBIN NEGATIVE (NEGATIVE); URINE BLOOD NEGATIVE (NEGATIVE); URINE GLUCOSE (UA) NEGATIVE (NEGATIVE); URINE KETONE TRACE mg/dL (NEGATIVE); URINE LEUKOCYTE ESTERASE NEGATIVE (NEGATIVE); URINE NITRATE NEGATIVE (NEGATIVE); URINE PH 5.5 (4.6 - 8.0); URINE PROTEIN NEGATIVE (NEGATIVE); URINE UROBILINOGEN 0.2 E.U./dL (0.2 - 1.0)
[2018-02-11 12:09] LABS: URINE CLARITY CLEAR (CLEAR); URINE COLOR YELLOW
[2018-02-11 12:16] LABS: URINE BACTERIA NONE SEEN /hpf (NONE SEEN); URINE EPITHELIAL CELLS RARE /lpf (FEW); URINE RBC 0-2 /hpf (0-5); URINE WBC 0-2 /hpf (0-5)
--- NOTE | 2018-02-11 12:46 | Diagnostic Imaging Report ---
CT abdomen and pelvis without intravenous contrast Indication: Abdominal pain Comparison: CT abdomen and pelvis on 12/25/2017 Technique: Axial images were obtained from the lung bases to the bilateral proximal femurs without IV contrast. Coronal reconstructions were made. total DLP: 1008, [id number] FINDINGS: Hypoventilatory and atelectatic changes of the lung bases are noted. Assessment of the solid organs is limited due to lack of IV contrast. There is fatty infiltration of the liver. No focal lesions. No focal splenic lesions. No focal pancreatic or adrenal lesions. 2 mm nonobstructive renal calculus is noted. Mild nonspecific bilateral perinephric inflammatory changes are noted. Diverticulosis is noted with mild bowel wall thickening and inflammatory change of the descending colon an small amount of surrounding free fluid. No evidence of free abdominal air. The appendix is unremarkable. There is a Schmorl's node within the L4 vertebral body. Mild degenerative changes of the spine are noted. IMPRESSION: Diverticulitis of the descending colon with mild surrounding bowel wall thickening and surrounding inflammatory change and small amount of free fluid. No evidence of free air or abscess formation. Follow-up is recommended to ensure resolution. Hepatic steatosis. 2 mm nonobstructive right renal stone.
[2018-02-11] MEDS ORDERED: HYDROmorphone 1 mg/mL 1mL Syr IVP PRN (16:14)
[2018-02-11] MEDS: Dicyclomine 10 mg Cap PO PRN (18:46)
--- NOTE | 2018-02-11 18:46 | History and Physical ---
History of Present Illness - HPI Chief Complaint: LLQ Abdominal pain HPI: 27 y/o male who presents with 2 day history of diffuse, crampy abdominal pain. Denies fever, chills, nausea, vomiting, diarrhea and urinary symptoms. Patient is not on any current medications and has no previous medical history. Initial labs WBC 12K H/H 14.2/42 platelets 246K Na 135 K 4.1 Bun/cr 15/0.9 glu 108 AST 12 ALT 18 Alk 57 amylase [address] abd revealed Diverticulitis of the descending colon with mild surrounding bowel wall thickening. Hepatic steatosis. 2mm nonobstructing renal stone. Vital Signs: Last Vital Signs Temp 97.9 F 02/11/18 16:00 Pulse 62 02/11/18 16:00 Resp 20 02/11/18 16:00 BP 108/63 02/11/18 16:00 Pulse Ox 95 02/11/18 16:00 Past Medical History Cardiovascular: Report: No Pertinent Hx Pulmonary: Report: No Pertinent Hx [employer]: Report: No Pertinent Hx GI: Report: No Pertinent Hx Psych: Report: No Pertinent Hx Musculoskeletal: Report: No Pertinent Hx Rheumatologic: Report: No pertinent Hx Infectious Disease: Report: No Pertinent Hx Renal/: Report: No Pertinent Hx Endocrine: Report: No Pertinent Hx Dermatology: Report: No Pertinent Hx - Past Surgical History Past Surgical History: No pertinent Hx Family Medical History - Family Member Maternal History Unknown: Yes Hx Family Diabetes: Yes FATHER History Unknown: Yes Living Status: Still Living Hx Family Diabetes: Yes Social History Smoke: No Alcohol: None Drugs: None Lives: Alone - Medications Home Medications: Home Medication Medication Instructions Recorded Type Dicyclomine [Bentyl 10 Mg Cap*] 10 mg PO Q6H PRN 02/11/18 History - Allergies Allergies/Adverse Reactions: Allergies Allergy/AdvReac Type Severity Reaction Status Date / Time No Known Allergies Allergy Verified 08/10/17 16:04 Review of Systems - Review of Systems Constitutional: Report: No Significant Eyes: Report: No Significant ENT: Report: No Significant Respiratory: Report: No Significant Cardiovascular: Report: No Significant Gastrointestinal: Report: Nausea, Vomiting, Abdominal Pain (LLQ). Denies: Diarrhea, Constipation Genitourinary: Report: No Significant Musculoskeletal: Report: No Significant Skin: Report: No Significant Neurological: Report: No Significant Physical Exam - Physical Exam HEENT: Report: Ears Nose Throat within normal limits, Pharnyx within normal limits Neck: Report: Within normal limits Cardiovascular Systems: Report: +s1/s2 noted, Regular, Rate and Rhythm, no murmurs noted Respiratory: Report: Breath Sounds are within normal limits, Clear to Auscultation of lung siegel Abdomen: Report: Tender to palpation (LLQ). Denies: Guarding Back: Report: Inspection of back is within normal limits. Extremities: Report: Non-tender to palpation. Skin: Report: Color of skin is within normal limits Neuro/Psych: Report: Mood affect is within normal limits, A+Ox3 - Assessment Assessment: Current Active Problems Problem Status Onset LEFT UPPER QUADRANT PAIN Acute LLQ Abdominal pain Diverticulitis Nephrolithiasis - Plan Plan: Will keep NPO Will Start IV levofloxacin and IV flagyl GI consult Zofran IV PRN repeat CBC,CMP tomorrow
[2018-02-11] MEDS: HYDROmorphone 2 mg/mL 1mL Vial IVP PRN (20:56)
[2018-02-11] MEDS: Levofloxacin 500mg/100mL 500 MG/100 ML BAG IV SCH (20:57)
[2018-02-11] MEDS: metroNIDAZOLE 500mg/NS 100mL 500 MG/100 ML BAG IV SCH (22:08)
[2018-02-12] MEDS: HYDROmorphone 2 mg/mL 1mL Vial IVP PRN ×6 (01:16→22:58)
[2018-02-12] MEDS: metroNIDAZOLE 500mg/NS 100mL 500 MG/100 ML BAG IV SCH ×3 (04:44→23:50)
[2018-02-12] MEDS: D5-0.45NS 1,000 ML IV SCH ×2 (04:53→21:44)
[2018-02-12 07:20] LABS: % BASOPHILS 0.7 % (0.0-2.0); % EOSINOPHILS 2.7 % (0.0-5.0); % LYMPHOCYTES 19.1 % (20.0-50.0); % MONOCYTES 10.6 % (2.0-10.0); % NEUTROPHILS 66.9 % (40.0-80.0); BASOPHILE ABSOLUTE 0.1 Th/cumm (0-0.2); EOSINOPHILE ABSOLUTE 0.2 Th/cmm (0.1-0.4); HEMATOCRIT 40.8 % (41.0-60); HEMOGLOBIN 13.7 gm/dL (12-16); LYMPHOCYTE ABSOLUTE 1.6 Th/cmm (1.5-3.0); MEAN CELL VOLUME 85.8 fl (80-99); MEAN CORPUSCULAR HEMOGLOBIN 28.9 pg (26.0-30.0); MEAN CORPUSCULAR HGB CONC 33.7 pg (28.0-36.0); MEAN PLATELET VOLUME 7.9 fl; MONOCYTE ABSOLUTE 0.9 Th/cmm (0.3-1.0); NEUTROPHILE ABSOLUTE 5.4 Th/cmm (1.8-8.0); PLATELET COUNT 223 Th/cmm (150-400); RED BLOOD COUNT 4.76 Mil/cmm (4.30-5.70); RED CELL DISTRIBUTION WIDTH 12.4 % (11.5-20.0); WHITE BLOOD COUNT 8.2 Th/cmm (4.8-10.8)
[2018-02-12 07:35] LABS: ALB/GLOB RATIO 1.3 (1.0-1.8); ALBUMIN 3.7 gm/dL (4.2-5.5); ALKALINE PHOSPHATASE 50 U/L (34-104); AMYLASE SERUM 19 U/L (29-103); ANION GAP 9.7 (7.0-16.0); BILIRUBIN,TOTAL 0.6 mg/dL (0.3-1.0); BUN - UREA NITROGEN 15 mg/dL (7-25); CALCIUM SERUM 9.1 mg/dL (8.6-10.3); CARBON DIOXIDE 25.6 mEq/L (21.0-31.0); CHLORIDE 106 mEq/L (98-107); CREATININE - SERUM 0.9 mg/dL (0.7-1.3); GFR AFRICAN-AMERICAN > 60.0 ml/min (>90); GFR NON AFRICAN-AMERICAN > 60.0 ml/min; GLUCOSE 102 mg/dL (70-105); LIPASE 10 U/L (11-82); POTASSIUM SERUM 4.3 mEq/L (3.5-5.1); SGOT 12 U/L (13-39); SGPT/ALT 14 U/L (7-52); SODIUM SERUM 137 mEq/L (136-145); TOTAL PROTEIN,SERUM 6.6 gm/dL (6.0-8.3)
--- NOTE | 2018-02-12 08:12 | General Progress Note ---
Subjective - Review of Systems Service Date: 02/12/18 Subjective: Patient is feeling somewhat better but has some pain to the LLQ. He is also complains of right sided back pain. CT abd revealed nephrolithiasis. Objective - Results Result Diagrams: 02/12/18 06:29 02/12/18 06:29 Recent Labs: Laboratory Last Values WBC 8.2 Th/cmm (4.8-10.8) 02/12/18 06: RBC 4.76 Mil/cmm (4.30-5.70) 02/12/18 06:29 Hgb 13.7 gm/dL (12-16) 02/12/18 06: Hct 40.8 % (41.0-60) L 02/12/18 06: MCV 85.8 fl (80-99) 02/12/18 06: MCH 28.9 pg (26.0-30.0) 02/12/18 06: MCHC Differential 33.7 pg (28.0-36.0) 02/12/18 06: RDW 12.4 % (11.5-20.0) 02/12/18 06:29 Plt Count 223 Th/cmm (150-400) 02/12/18 06:29 MPV 7.9 fl 02/12/18 06: Neutrophils % 66.9 % (40.0-80.0) 02/12/18 06: Lymphocytes % 19.1 % (20.0-50.0) L 02/12/18 06: Monocytes % 10.6 % (2.0-10.0) H 02/12/18 06: Eosinophils % 2.7 % (0.0-5.0) 02/12/18 06: Basophils % 0.7 % (0.0-2.0) 02/12/18 06: PT 11.2 SECONDS (9.5-11.5) 02/11/18 10:54 INR 1.08 (0.5-1.4) 02/11/18 10:54 Sodium 137 mEq/L (136-145) 02/12/18 06:29 Potassium 4.3 mEq/L (3.5-5.1) 02/12/18 06:29 Chloride 106 mEq/L (98-107) 02/12/18 06:29 Carbon Dioxide 25.6 mEq/L (21.0-31.0) 02/12/18 06:29 Anion Gap 9.7 (7.0-16.0) 02/12/18 06:29 BUN 15 mg/dL (7-25) 02/12/18 06:29 Creatinine 0.9 mg/dL (0.7-1.3) 02/12/18 06: Est GFR ( Amer) > 60.0 ml/min (>90) 02/12/18: Est GFR (Non-Af Amer) > 60.0 ml/min 02/12/18 06: BUN/Creatinine Ratio 16.7 02/12/18 06: Glucose 102 mg/dL (70-105) 02/12/18 06: Whole Bld Lactic Acid 0.64 mmol/L (0.60-1.99) 02/11/18 10:56 Calcium 9.1 mg/dL (8.6-10.3) 02/12/18 06: Total Bilirubin 0.6 mg/dL (0.3-1.0) 02/12/18 06: AST 12 U/L (13-39) L 02/12/18 06:29 ALT 14 U/L (7-52) 02/12/18 06:29 Alkaline Phosphatase 50 U/L (34-104) 02/12/18 06:29 Creatine Kinase 103 U/L (30-223) 02/11/18 10:54 Troponin I < 0.01 ng/mL (0.01-0.05) L 02/11/18 10:54 B-Natriuretic Peptide 7.4 pg/mL (5.0-100.0) 02/11/18 10:54 Total Protein 6.6 gm/dL (6.0-8.3) 02/12/18 06: Albumin 3.7 gm/dL (4.2-5.5) L 02/12/18 06: Globulin 2.9 gm/dL 02/12/18 06: Albumin/Globulin Ratio 1.3 (1.0-1.8) 02/12/18 06:29 Triglycerides 53 mg/dL (<150) 02/11/18 10:54 Cholesterol 156 mg/dL (<200) 02/11/18 10:54 LDL Cholesterol Direct 97 mg/dL (75-193) 02/11/18 10:54 HDL Cholesterol 55 mg/dL (23-92) 02/11/18 10:54 Amylase 19 U/L (29-103) L 02/12/18 06:29 Lipase 10 U/L (11-82) L 02/12/18 06:29 Urine Source CLEAN C 02/11/18 11:40 Urine Color YELLOW 02/11/18 11:40 Urine Clarity CLEAR (CLEAR) 02/11/18 11:40 Urine pH 5.5 (4.6 - 8.0) 02/11/18 11:40 Ur Specific [place] 1.020 (1.005-1.030) 02/11/18 11:40 Urine Protein NEGATIVE mg/dL (NEGATIVE) 02/11/18 11:40 Urine Glucose (UA) NEGATIVE mg/dL (NEGATIVE) 02/11/18 11:40 Urine Ketones TRACE mg/dL (NEGATIVE) 02/11/18 11:40 Urine Blood NEGATIVE (NEGATIVE) 02/11/18 11:40 Urine Nitrate NEGATIVE (NEGATIVE) 02/11/18 11:40 Urine Bilirubin NEGATIVE (NEGATIVE) 02/11/18 11:40 Urine Urobilinogen 0.2 E.U./dL (0.2 - 1.0) 02/11/18 11:40 Ur Leukocyte Esterase NEGATIVE (NEGATIVE) 02/11/18 11:40 Urine RBC 0-2 /hpf (0-5) H 02/11/18 11:40 Urine WBC 0-2 /hpf (0-5) 02/11/18 11:40 Ur Epithelial Cells RARE /lpf (FEW) 02/11/18 11:40 Urine Bacteria NONE SEEN /hpf (NONE SEEN) 02/11/18 11:40 - Physical Exam Vitals and I&O: Vital Signs Temp 97 F 02/12/18 05:00 Pulse 63 02/12/18 05:00 Resp 19 02/12/18 05:00 BP 145/68 02/12/18 05:00 Pulse Ox 96 02/12/18 05:00 Intake & Output 02/11/18 02/12/18 02/12/18 18:59 06:59 18:59 Intake Total 100 0 Balance 100 0 Weight (lbs) 158.757 kg 158.757 kg Intake: Intake, IV Amount 100 metroNIDAZOLE 500mg/NS 100 100mL 500 mg In 100 ml @ 100 mls/hr IV Q8HR [facility] Rx #:[id number] Oral 0 Other: # Voids 0 550 # Bowel Movements 0 0 Weight Source Bedscale Bedscale Active Medications: Current Medications Dicyclomine HCl (Bentyl) 10 mg PO Q6H PRN PRN Reason: ABDOMINAL PAIN/CRAMPING Stop: 04/12/18 17:05 Last Admin: 02/11/18 18:46 Dose: 10 mg Hydromorphone HCl (Dilaudid) 2 mg IVP Q4HR PRN PRN Reason: Abdominal Pain Stop: 04/12/18 20:29 Last Admin: 02/12/18 06:39 Dose: 2 mg Dextrose/Sodium Chloride (D5-0.45ns) 1,000 mls @ 75 mls/hr IV .[id number] [facility] Stop: 04/12/18 13:59 Last Admin: 02/12/18 04:53 Dose: 75 mls/hr Levofloxacin (Levaquin Pb) 500 mg in 100 mls @ 100 mls/hr IV Q24HR [facility] Stop: 04/12/18 18:59 Last Admin: 02/11/18 20:57 Dose: 100 mls/hr Metronidazole (Flagyl) 500 mg in 100 mls @ 100 mls/hr IV Q8HR [facility] Stop: 04/12/18 20:59 Last Admin: 02/12/18 04:44 Dose: 100 mls/hr Morphine Sulfate (Morphine) 2 mg IVP Q6HR PRN PRN Reason: PAIN Stop: 04/12/18 13:59 Ondansetron HCl (Zofran) 4 mg IV Q4H PRN PRN Reason: Nausea / Vomiting Stop: 04/12/18 20:20 Last Admin: 02/11/18 21:02 Dose: 4 mg Pantoprazole Sodium (Protonix) 40 mg IVP DAILY [facility] Stop: 04/13/18 08:59 General: Alert, Oriented x3, No acute distress HEENT: Atraumatic, PERRLA Neck: Supple Cardiovascular: Regular rate, Normal S1, Normal S2 Lungs: Clear to auscultation Abdomen: Bowel sounds Extremities: no Clubbing, no Cyanosis, no Edema - Procedures Procedures: Procedures Procedure Code Date EXCIS KNEE SEMILUN CARTL 80.6 03/26/05 KNEE ARTHROSCOPY/SURGERY 15575 03/26/05 KNEE ARTHROSCOPY/SURGERY 82933 03/26/05 OT ARTHROTOMY-KNEE 80.16 03/26/05 Assessment/Plan - Problem List Patient Problems: All Active Problems LEFT UPPER QUADRANT PAIN (Acute) - Assessment Assessment: Current Active Problems Problem Status Onset LEFT UPPER QUADRANT PAIN Acute Abdominal pain Diverticulitis Nephrolithiasis hematuria leukocytosis - Plan Plan: Will keep NPO Will Start IV levofloxacin and IV flagyl GI consult start IV fluids repeat CBC,CMP tomorrow
[2018-02-12] MEDS ORDERED: Probiotic Screen MC PRN (13:00)
[2018-02-12] MEDS: Levofloxacin 500mg/100mL 500 MG/100 ML BAG IV SCH (21:35)
[2018-02-12] MEDS: Dicyclomine 10 mg Cap PO PRN (21:59)
--- NOTE | 2018-02-13 00:15 | Consultation ---
DATE OF CONSULTATION: 02/12/2018 CONSULTING PHYSICIAN: Dr. Forrest. REASON FOR CONSULTATION: Diverticulitis. HISTORY OF PRESENT ILLNESS: The patient is a 27-year-old male who presents with a history of two episodes of prior diverticulitis who is coming in with left lower quadrant pain. The patient has the pain started 2 days previously, has been mostly in his left lower quadrant. He denies any diarrhea, melena, hematochezia or vomiting at this time. The patient has had this happened to him twice before with diverticulitis, last time being in 08/2017. He has never had a surgical consultation. PAST MEDICAL HISTORY: He denies any chronic medical issues. PAST SURGICAL HISTORY: Never had any abdominal surgeries. FAMILY HISTORY: Noncontributory. SOCIAL HISTORY: The patient smokes cigarettes, marijuana, but does not drink. REVIEW OF SYSTEMS: Twelve-point review of systems were performed. The patient is negative other than the pertinent positives mentioned in the history of present illness. CURRENT MEDICATIONS: Bentyl, Dilaudid, Levaquin, Flagyl, morphine, Zofran, Protonix. PHYSICAL EXAMINATION: VITAL SIGNS: Blood pressure is 116/74, pulse 70 beats per minute, temperature 97.3, oxygenation 97%, respiratory rate is 18. GENERAL: The patient is lying in bed, at 30 degrees. Alert and oriented x 3. HEAD, EYES, EARS, NOSE, AND THROAT: Normocephalic, atraumatic appearing head, pupils are equal and reactive to light. Extraocular muscles are intact. No scleral icterus. Moist mucous membranes. NECK: Supple. No JVD, thyromegaly, or lymphadenopathy. CHEST: Clear to auscultation bilaterally. CARDIOVASCULAR: S1, S2 are present, regular rate and rhythm. ABDOMEN: Obese, tender to palpation exquisitely in the left lower quadrant. No guarding the right side. No rebound. EXTREMITIES: Nonpitting edema is noted bilaterally. Pulses are not present. SKIN: No obvious jaundice or cyanosis. LABORATORY DATA: White blood cell count 8.2, hemoglobin is 13.7, platelet count is 223. INR is 1.08. Sodium 137, BUN 15, creatinine 0.9, total bilirubin 0.6, AST 12, ALT 14, lipase is 10. IMAGING: Abdomen and pelvis CT scan was performed without contrast and shows diverticulitis of the descending colon with mild surrounding bowel wall thickening and surrounding inflammatory change. No evidence of free air or abscess formation. There is also incidentally nonobstructive right renal stone. IMPRESSION: This is a 27-year-old male who has had 2 episodes of diverticulitis prior, who is now admitted with a third episode in the left lower quadrant and descending colon. 1. Descending colon diverticulitis. 2. Left lower quadrant pain. DISCUSSION: This is a clearcut case of descending colon diverticulitis without complication. Given that this is his third case, the patient should consider surgical option after he has healed in order to prevent further recurrences. Additionally, I would recommend that the patient have a colonoscopy 6 weeks after his hospitalization in order to ensure that there is no occult malignancy in this area. RECOMMENDATIONS: 1. Continue Levaquin and Flagyl. 2. Recommend surgical consultation given that this is the third episode of diverticulitis and the patient should consider having this area removed surgically after this is healed. 3. Recommend colonoscopy in 6 weeks after he is discharged. 4. N.p.o. today and can start clear liquids tomorrow if he feels up to it. Thank you for allowing me to participate in the patient's care. Please call me with further questions. JOB# [id number]
[2018-02-13] MEDS: HYDROmorphone 2 mg/mL 1mL Vial IVP PRN ×4 (04:02→20:20)
[2018-02-13] MEDS: metroNIDAZOLE 500mg/NS 100mL 500 MG/100 ML BAG IV SCH ×3 (05:42→20:21)
[2018-02-13] MEDS: Morphine Sulfate 4 mg/mL 1mL Syr IVP PRN ×3 (05:43→18:15)
[2018-02-13] MEDS: Lactobacillus Rhamnosus GG 15 Billion CFU CAP.SPRINK PO SCH (08:07)
--- NOTE | 2018-02-13 08:13 | General Progress Note ---
Subjective - Review of Systems Service Date: 02/13/18 Subjective: Patient is feeling somewhat better but has some pain to the LLQ. He states that he has some nausea and decreased appetite. tolerating clear liquid diet Objective - Results Result Diagrams: 02/12/18 06:29 02/12/18 06:29 Recent Labs: Laboratory Last Values WBC 8.2 Th/cmm (4.8-10.8) 02/12/18 06: RBC 4.76 Mil/cmm (4.30-5.70) 02/12/18 06:29 Hgb 13.7 gm/dL (12-16) 02/12/18 06:29 Hct 40.8 % (41.0-60) L 02/12/18 06: MCV 85.8 fl (80-99) 02/12/18 06: MCH 28.9 pg (26.0-30.0) 02/12/18 06: MCHC Differential 33.7 pg (28.0-36.0) 02/12/18 06:29 RDW 12.4 % (11.5-20.0) 02/12/18 06:29 Plt Count 223 Th/cmm (150-400) 02/12/18 06:29 MPV 7.9 fl 02/12/18 06: Neutrophils % 66.9 % (40.0-80.0) 02/12/18 06: Lymphocytes % 19.1 % (20.0-50.0) L 02/12/18 06: Monocytes % 10.6 % (2.0-10.0) H 02/12/18 06: Eosinophils % 2.7 % (0.0-5.0) 02/12/18 06:29 Basophils % 0.7 % (0.0-2.0) 02/12/18 06: PT 11.2 SECONDS (9.5-11.5) 02/11/18 10:54 INR 1.08 (0.5-1.4) 02/11/18 10:54 Sodium 137 mEq/L (136-145) 02/12/18 06:29 Potassium 4.3 mEq/L (3.5-5.1) 02/12/18 06:29 Chloride 106 mEq/L (98-107) 02/12/18 06:29 Carbon Dioxide 25.6 mEq/L (21.0-31.0) 02/12/18 06:29 Anion Gap 9.7 (7.0-16.0) 02/12/18 06: BUN 15 mg/dL (7-25) 02/12/18 06:29 Creatinine 0.9 mg/dL (0.7-1.3) 02/12/18 06: Est GFR ( Amer) > 60.0 ml/min (>90) 02/12/18: Est GFR (Non-Af Amer) > 60.0 ml/min 02/12/18 06: BUN/Creatinine Ratio 16.7 02/12/18 06: Glucose 102 mg/dL (70-105) 02/12/18 06: Whole Bld Lactic Acid 0.64 mmol/L (0.60-1.99) 02/11/18 10:56 Calcium 9.1 mg/dL (8.6-10.3) 02/12/18 06: Total Bilirubin 0.6 mg/dL (0.3-1.0) 02/12/18 06: AST 12 U/L (13-39) L 02/12/18 06: ALT 14 U/L (7-52) 02/12/18 06:29 Alkaline Phosphatase 50 U/L (34-104) 02/12/18 06:29 Creatine Kinase 103 U/L (30-223) 02/11/18 10:54 Troponin I < 0.01 ng/mL (0.01-0.05) L 02/11/18 10:54 B-Natriuretic Peptide 7.4 pg/mL (5.0-100.0) 02/11/18 10:54 Total Protein 6.6 gm/dL (6.0-8.3) 02/12/18 06: Albumin 3.7 gm/dL (4.2-5.5) L 02/12/18 06: Globulin 2.9 gm/dL 02/12/18 06: Albumin/Globulin Ratio 1.3 (1.0-1.8) 02/12/18 06:29 Triglycerides 53 mg/dL (<150) 02/11/18 10:54 Cholesterol 156 mg/dL (<200) 02/11/18 10:54 LDL Cholesterol Direct 97 mg/dL (75-193) 02/11/18 10:54 HDL Cholesterol 55 mg/dL (23-92) 02/11/18 10:54 Amylase 19 U/L (29-103) L 02/12/18 06:29 Lipase 10 U/L (11-82) L 02/12/18 06:29 TSH 1.28 uIU/ml (0.34-5.60) 02/12/18 06:29 Urine Source CLEAN C 02/11/18 11:40 Urine Color YELLOW 02/11/18 11:40 Urine Clarity CLEAR (CLEAR) 02/11/18 11:40 Urine pH 5.5 (4.6 - 8.0) 02/11/18 11:40 Ur Specific [place] 1.020 (1.005-1.030) 02/11/18 11:40 Urine Protein NEGATIVE mg/dL (NEGATIVE) 02/11/18 11:40 Urine Glucose (UA) NEGATIVE mg/dL (NEGATIVE) 02/11/18 11:40 Urine Ketones TRACE mg/dL (NEGATIVE) 02/11/18 11:40 Urine Blood NEGATIVE (NEGATIVE) 02/11/18 11:40 Urine Nitrate NEGATIVE (NEGATIVE) 02/11/18 11:40 Urine Bilirubin NEGATIVE (NEGATIVE) 02/11/18 11:40 Urine Urobilinogen 0.2 E.U./dL (0.2 - 1.0) 02/11/18 11:40 Ur Leukocyte Esterase NEGATIVE (NEGATIVE) 02/11/18 11:40 Urine RBC 0-2 /hpf (0-5) H 02/11/18 11:40 Urine WBC 0-2 /hpf (0-5) 02/11/18 11:40 Ur Epithelial Cells RARE /lpf (FEW) 02/11/18 11:40 Urine Bacteria NONE SEEN /hpf (NONE SEEN) 02/11/18 11:40 - Physical Exam Vitals and I&O: Vital Signs Temp 96.3 F 02/13/18 04:00 Pulse 59 02/13/18 04:00 Resp 18 02/13/18 04:00 BP 134/85 02/13/18 04:00 Pulse Ox 98 02/13/18 04:00 Intake & Output 02/12/18 02/13/18 02/13/18 18:59 06:59 18:59 Intake Total 1100 100 Balance 1100 100 Weight (lbs) 158.757 kg Intake: Intake, IV Amount 1100 100 D5-0.45NS 1,000 ml @ 75 1000 mls/hr IV .[id number] [facility] Rx #:[id number] metroNIDAZOLE 500mg/NS 100 100 100mL 500 mg In 100 ml @ 100 mls/hr IV Q8HR [facility] Rx #:[id number] Oral 0 Other: # Voids 550 # Bowel Movements 0 Weight Source Bedscale Active Medications: Current Medications Dicyclomine HCl (Bentyl) 10 mg PO Q6H PRN PRN Reason: ABDOMINAL PAIN/CRAMPING Stop: 04/12/18 17:05 Last Admin: 02/12/18 21:59 Dose: 10 mg Hydromorphone HCl (Dilaudid) 2 mg IVP Q4HR PRN PRN Reason: Abdominal Pain Stop: 04/12/18 20:29 Last Admin: 02/13/18 08:07 Dose: 2 mg Dextrose/Sodium Chloride (D5-0.45ns) 1,000 mls @ 75 mls/hr IV .[id number] [facility] Stop: 04/12/18 13:59 Last Admin: 02/12/18 21:44 Dose: 75 mls/hr Levofloxacin (Levaquin Pb) 500 mg in 100 mls @ 100 mls/hr IV Q24HR [facility] Stop: 04/12/18 18:59 Last Admin: 02/12/18 21:35 Dose: 100 mls/hr Metronidazole (Flagyl) 500 mg in 100 mls @ 100 mls/hr IV Q8HR [facility] Stop: 04/12/18 20:59 Last Admin: 02/13/18 05:42 Dose: 100 mls/hr Lactobacillus Rhamnosus (Culturelle 15b) 1 each PO DAILY [facility] Stop: 04/14/18 08:59 Last Admin: 02/13/18 08:07 Dose: 1 each Miscellaneous (Probiotic Screen) 1 ea MC PRN PRN PRN Reason: PROTOCOL Stop: 04/13/18 12:59 Morphine Sulfate (Morphine) 2 mg IVP Q6HR PRN PRN Reason: PAIN Stop: 04/12/18 13:59 Last Admin: 02/13/18 05:43 Dose: 2 mg Ondansetron HCl (Zofran) 4 mg IV Q4H PRN PRN Reason: Nausea / Vomiting Stop: 04/12/18 20:20 Last Admin: 02/13/18 04:06 Dose: 4 mg Pantoprazole Sodium (Protonix) 40 mg IVP DAILY [facility] Stop: 04/13/18 08:59 Last Admin: 02/13/18 08:07 Dose: 40 mg General: Alert, Oriented x3, No acute distress HEENT: Atraumatic, PERRLA Neck: Supple Cardiovascular: Regular rate, Normal S1, Normal S2 Lungs: Clear to auscultation Abdomen: Bowel sounds Extremities: no Clubbing, no Cyanosis, no Edema - Procedures Procedures: Procedures Procedure Code Date EXCIS KNEE SEMILUN CARTL 80.6 03/26/05 KNEE ARTHROSCOPY/SURGERY 42830 03/26/05 KNEE ARTHROSCOPY/SURGERY 39249 03/26/05 [facility] ARTHROTOMY-KNEE 80.16 03/26/05 Assessment/Plan - Problem List Patient Problems: All Active Problems LEFT UPPER QUADRANT PAIN (Acute) - Assessment Assessment: Current Active Problems Problem Status Onset LEFT UPPER QUADRANT PAIN Acute Abdominal pain Diverticulitis Nephrolithiasis hematuria leukocytosis - Plan Plan: Will keep NPO Will Start IV levofloxacin and IV flagyl GI consult start IV fluids repeat CBC,CMP tomorrow
--- NOTE | 2018-02-13 08:59 | GI Progress Note ---
Subjective - Review of Systems Service Date: 02/13/18 Subjective: Still persistant LLQ pain and some nausea today Objective - Results Result Diagrams: 02/12/18 06:29 02/12/18 06:29 Recent Labs: Laboratory Last Values WBC 8.2 Th/cmm (4.8-10.8) 02/12/18 06:29 RBC 4.76 Mil/cmm (4.30-5.70) 02/12/18 06:29 Hgb 13.7 gm/dL (12-16) 02/12/18 06:29 Hct 40.8 % (41.0-60) L 02/12/18 06:29 MCV 85.8 fl (80-99) 02/12/18 06: MCH 28.9 pg (26.0-30.0) 02/12/18 06: MCHC Differential 33.7 pg (28.0-36.0) 02/12/18 06: RDW 12.4 % (11.5-20.0) 02/12/18 06:29 Plt Count 223 Th/cmm (150-400) 02/12/18 06:29 MPV 7.9 fl 02/12/18 06: Neutrophils % 66.9 % (40.0-80.0) 02/12/18 06: Lymphocytes % 19.1 % (20.0-50.0) L 02/12/18 06:29 Monocytes % 10.6 % (2.0-10.0) H 02/12/18 06: Eosinophils % 2.7 % (0.0-5.0) 02/12/18 06: Basophils % 0.7 % (0.0-2.0) 02/12/18 06:29 PT 11.2 SECONDS (9.5-11.5) 02/11/18 10:54 INR 1.08 (0.5-1.4) 02/11/18 10:54 Sodium 137 mEq/L (136-145) 02/12/18 06:29 Potassium 4.3 mEq/L (3.5-5.1) 02/12/18 06:29 Chloride 106 mEq/L (98-107) 02/12/18 06:29 Carbon Dioxide 25.6 mEq/L (21.0-31.0) 02/12/18 06:29 Anion Gap 9.7 (7.0-16.0) 02/12/18 06: BUN 15 mg/dL (7-25) 02/12/18 06:29 Creatinine 0.9 mg/dL (0.7-1.3) 02/12/18 06:29 Est GFR ( Amer) > 60.0 ml/min (>90) 02/12/18 06: Est GFR (Non-Af Amer) > 60.0 ml/min 02/12/18 06:29 BUN/Creatinine Ratio 16.7 02/12/18 06: Glucose 102 mg/dL (70-105) 02/12/18 06:29 Whole Bld Lactic Acid 0.64 mmol/L (0.60-1.99) 02/11/18 10:56 Calcium 9.1 mg/dL (8.6-10.3) 02/12/18 06: Total Bilirubin 0.6 mg/dL (0.3-1.0) 02/12/18 06: AST 12 U/L (13-39) L 02/12/18 06:29 ALT 14 U/L (7-52) 02/12/18 06:29 Alkaline Phosphatase 50 U/L (34-104) 02/12/18 06: Creatine Kinase 103 U/L (30-223) 02/11/18 10:54 Troponin I < 0.01 ng/mL (0.01-0.05) L 02/11/18 10:54 B-Natriuretic Peptide 7.4 pg/mL (5.0-100.0) 02/11/18 10:54 Total Protein 6.6 gm/dL (6.0-8.3) 02/12/18 06: Albumin 3.7 gm/dL (4.2-5.5) L 02/12/18 06: Globulin 2.9 gm/dL 02/12/18 06: Albumin/Globulin Ratio 1.3 (1.0-1.8) 02/12/18 06:29 Triglycerides 53 mg/dL (<150) 02/11/18 10:54 Cholesterol 156 mg/dL (<200) 02/11/18 10:54 LDL Cholesterol Direct 97 mg/dL (75-193) 02/11/18 10:54 HDL Cholesterol 55 mg/dL (23-92) 02/11/18 10:54 Amylase 19 U/L (29-103) L 02/12/18 06:29 Lipase 10 U/L (11-82) L 02/12/18 06:29 TSH 1.28 uIU/ml (0.34-5.60) 02/12/18 06:29 Urine Source CLEAN C 02/11/18 11:40 Urine Color YELLOW 02/11/18 11:40 Urine Clarity CLEAR (CLEAR) 02/11/18 11:40 Urine pH 5.5 (4.6 - 8.0) 02/11/18 11:40 Ur Specific [place] 1.020 (1.005-1.030) 02/11/18 11:40 Urine Protein NEGATIVE mg/dL (NEGATIVE) 02/11/18 11:40 Urine Glucose (UA) NEGATIVE mg/dL (NEGATIVE) 02/11/18 11:40 Urine Ketones TRACE mg/dL (NEGATIVE) 02/11/18 11:40 Urine Blood NEGATIVE (NEGATIVE) 02/11/18 11:40 Urine Nitrate NEGATIVE (NEGATIVE) 02/11/18 11:40 Urine Bilirubin NEGATIVE (NEGATIVE) 02/11/18 11:40 Urine Urobilinogen 0.2 E.U./dL (0.2 - 1.0) 02/11/18 11:40 Ur Leukocyte Esterase NEGATIVE (NEGATIVE) 02/11/18 11:40 Urine RBC 0-2 /hpf (0-5) H 02/11/18 11:40 Urine WBC 0-2 /hpf (0-5) 02/11/18 11:40 Ur Epithelial Cells RARE /lpf (FEW) 02/11/18 11:40 Urine Bacteria NONE SEEN /hpf (NONE SEEN) 02/11/18 11:40 - Physical Exam Vitals and I&O: Vital Signs Temp 96.3 F 02/13/18 04:00 Pulse 59 02/13/18 04:00 Resp 18 02/13/18 04:00 BP 134/85 02/13/18 04:00 Pulse Ox 98 02/13/18 04:00 Intake & Output 02/12/18 02/13/18 02/13/18 18:59 06:59 18:59 Intake Total 1100 100 Balance 1100 100 Weight (lbs) 158.757 kg Intake: Intake, IV Amount 1100 100 D5-0.45NS 1,000 ml @ 75 1000 mls/hr IV .[id number] [facility] Rx #:[id number] metroNIDAZOLE 500mg/NS 100 100 100mL 500 mg In 100 ml @ 100 mls/hr IV Q8HR [facility] Rx #:[id number] Oral 0 Other: # Voids 550 # Bowel Movements 0 Weight Source Bedscale Active Medications: Current Medications Dicyclomine HCl (Bentyl) 10 mg PO Q6H PRN PRN Reason: ABDOMINAL PAIN/CRAMPING Stop: 04/12/18 17:05 Last Admin: 02/12/18 21:59 Dose: 10 mg Hydromorphone HCl (Dilaudid) 2 mg IVP Q4HR PRN PRN Reason: Abdominal Pain Stop: 04/12/18 20:29 Last Admin: 02/13/18 08:07 Dose: 2 mg Dextrose/Sodium Chloride (D5-0.45ns) 1,000 mls @ 75 mls/hr IV .[id number] [facility] Stop: 04/12/18 13:59 Last Admin: 02/12/18 21:44 Dose: 75 mls/hr Levofloxacin (Levaquin Pb) 500 mg in 100 mls @ 100 mls/hr IV Q24HR [facility] Stop: 04/12/18 18:59 Last Admin: 02/12/18 21:35 Dose: 100 mls/hr Metronidazole (Flagyl) 500 mg in 100 mls @ 100 mls/hr IV Q8HR [facility] Stop: 04/12/18 20:59 Last Admin: 02/13/18 05:42 Dose: 100 mls/hr Lactobacillus Rhamnosus (Culturelle 15b) 1 each PO DAILY [facility] Stop: 04/14/18 08:59 Last Admin: 02/13/18 08:07 Dose: 1 each Miscellaneous (Probiotic Screen) 1 ea MC PRN PRN PRN Reason: PROTOCOL Stop: 04/13/18 12:59 Morphine Sulfate (Morphine) 2 mg IVP Q6HR PRN PRN Reason: PAIN Stop: 04/12/18 13:59 Last Admin: 02/13/18 05:43 Dose: 2 mg Ondansetron HCl (Zofran) 4 mg IV Q4H PRN PRN Reason: Nausea / Vomiting Stop: 04/12/18 20:20 Last Admin: 02/13/18 04:06 Dose: 4 mg Pantoprazole Sodium (Protonix) 40 mg IVP DAILY [facility] Stop: 04/13/18 08:59 Last Admin: 02/13/18 08:07 Dose: 40 mg General: Alert, Oriented x3, No acute distress HEENT: Atraumatic, PERRLA Neck: Supple Cardiovascular: Regular rate, Normal S1, Normal S2 Lungs: Clear to auscultation Abdomen: Bowel sounds Extremities: no Clubbing, no Cyanosis, no Edema - Procedures Procedures: Procedures Procedure Code Date EXCIS KNEE SEMILUN CARTL 80.6 03/26/05 KNEE ARTHROSCOPY/SURGERY 79232 03/26/05 KNEE ARTHROSCOPY/SURGERY 45482 03/26/05 OT ARTHROTOMY-KNEE 80.16 03/26/05 Assessment/Plan - Problem List Patient Problems: All Active Problems LEFT UPPER QUADRANT PAIN (Acute) - Assessment Assessment: # Descending diverticulitis, uncomplicated # Sepsis As seen on CT scan. Still with pain today, thus recommend NPO for today. Can start clears tomorrow Plan: - cont abx - NPO today except ice chips given ongoing pain - start clears likely tomorrow - pt needs colonoscopy 6 weeks after resolution - consider sigmoid/descending resection given this is 3rd episode.
[2018-02-13] MEDS: D5-0.45NS 1,000 ML IV SCH (14:31)
--- NOTE | 2018-02-13 17:07 | Consultation ---
DATE OF CONSULTATION: 02/13/2018 SURGICAL CONSULTATION REFERRING PHYSICIAN: Dr. Forrest. REASON FOR CONSULTATION: Abdominal pain. Thank you for referring this patient to me. HISTORY OF PRESENT ILLNESS: This is a 27-year-old male who has had a 2-day history of abdominal pain. He last was admitted here in August for the same complaint with a diagnosis of diverticulitis. First diagnosed 5 years ago with the same condition as he does. Apparently, had a perforated diverticulosis and underwent surgery. The patient was given a diet, but has not really followed it. CT scan of the abdomen shows diverticulitis of the descending colon with bowel thickening, hepatic steatosis, and a renal stone. LABORATORY STUDIES: WBC slightly elevated to 12,000. Chemistry shows lipase elevated to 522. PHYSICAL EXAMINATION: ABDOMEN: The patient is obese. There is moderate tenderness in the left lower quadrant. IMPRESSION: 1. Recurrent diverticulitis. 2. Obesity. 3. Hepatic steatosis. 4. Low-grade pancreatitis. RECOMMENDATIONS: The patient needs to stick to a diet as recommended. At this point, no surgery is indicated. JOB# [id number]
[2018-02-13] MEDS: Levofloxacin 500mg/100mL 500 MG/100 ML BAG IV SCH (18:15)
[2018-02-14] MEDS: HYDROmorphone 2 mg/mL 1mL Vial IVP PRN ×2 (00:30→04:46)
[2018-02-14] MEDS: Morphine Sulfate 4 mg/mL 1mL Syr IVP PRN (02:54)
[2018-02-14] MEDS: metroNIDAZOLE 500mg/NS 100mL 500 MG/100 ML BAG IV SCH ×2 (04:46→12:21)
[2018-02-14] MEDS: D5-0.45NS 1,000 ML IV SCH (04:47)
--- NOTE | 2018-02-14 06:10 | General Progress Note ---
Subjective - Review of Systems Service Date: 02/14/18 Subjective: Patient is feeling somewhat better but has some pain to the LLQ. He states that he has some nausea and decreased appetite. NPO. Ice chips. Objective - Results Result Diagrams: 02/12/18 06:29 02/12/18 06:29 Recent Labs: Laboratory Last Values WBC 8.2 Th/cmm (4.8-10.8) 02/12/18 06: RBC 4.76 Mil/cmm (4.30-5.70) 02/12/18 06:29 Hgb 13.7 gm/dL (12-16) 02/12/18 06:29 Hct 40.8 % (41.0-60) L 02/12/18 06: MCV 85.8 fl (80-99) 02/12/18 06: MCH 28.9 pg (26.0-30.0) 02/12/18 06: MCHC Differential 33.7 pg (28.0-36.0) 02/12/18 06:29 RDW 12.4 % (11.5-20.0) 02/12/18 06:29 Plt Count 223 Th/cmm (150-400) 02/12/18 06:29 MPV 7.9 fl 02/12/18 06: Neutrophils % 66.9 % (40.0-80.0) 02/12/18 06: Lymphocytes % 19.1 % (20.0-50.0) L 02/12/18 06: Monocytes % 10.6 % (2.0-10.0) H 02/12/18 06: Eosinophils % 2.7 % (0.0-5.0) 02/12/18 06: Basophils % 0.7 % (0.0-2.0) 02/12/18 06: PT 11.2 SECONDS (9.5-11.5) 02/11/18 10:54 INR 1.08 (0.5-1.4) 02/11/18 10:54 Sodium 137 mEq/L (136-145) 02/12/18 06:29 Potassium 4.3 mEq/L (3.5-5.1) 02/12/18 06:29 Chloride 106 mEq/L (98-107) 02/12/18 06:29 Carbon Dioxide 25.6 mEq/L (21.0-31.0) 02/12/18 06:29 Anion Gap 9.7 (7.0-16.0) 02/12/18 06: BUN 15 mg/dL (7-25) 02/12/18 06:29 Creatinine 0.9 mg/dL (0.7-1.3) 02/12/18 06:29 Est GFR ( Amer) > 60.0 ml/min (>90) 02/12/18: Est GFR (Non-Af Amer) > 60.0 ml/min 02/12/18 06: BUN/Creatinine Ratio 16.7 02/12/18 06: Glucose 102 mg/dL (70-105) 02/12/18 06: Whole Bld Lactic Acid 0.64 mmol/L (0.60-1.99) 02/11/18 10:56 Calcium 9.1 mg/dL (8.6-10.3) 02/12/18 06: Total Bilirubin 0.6 mg/dL (0.3-1.0) 02/12/18 06: AST 12 U/L (13-39) L 02/12/18 06:29 ALT 14 U/L (7-52) 02/12/18 06:29 Alkaline Phosphatase 50 U/L (34-104) 02/12/18 06:29 Creatine Kinase 103 U/L (30-223) 02/11/18 10:54 Troponin I < 0.01 ng/mL (0.01-0.05) L 02/11/18 10:54 B-Natriuretic Peptide 7.4 pg/mL (5.0-100.0) 02/11/18 10:54 Total Protein 6.6 gm/dL (6.0-8.3) 02/12/18 06: Albumin 3.7 gm/dL (4.2-5.5) L 02/12/18 06: Globulin 2.9 gm/dL 02/12/18 06: Albumin/Globulin Ratio 1.3 (1.0-1.8) 02/12/18 06:29 Triglycerides 53 mg/dL (<150) 02/11/18 10:54 Cholesterol 156 mg/dL (<200) 02/11/18 10:54 LDL Cholesterol Direct 97 mg/dL (75-193) 02/11/18 10:54 HDL Cholesterol 55 mg/dL (23-92) 02/11/18 10:54 Amylase 19 U/L (29-103) L 02/12/18 06:29 Lipase 10 U/L (11-82) L 02/12/18 06:29 TSH 1.28 uIU/ml (0.34-5.60) 02/12/18 06:29 Urine Source CLEAN C 02/11/18 11:40 Urine Color YELLOW 02/11/18 11:40 Urine Clarity CLEAR (CLEAR) 02/11/18 11:40 Urine pH 5.5 (4.6 - 8.0) 02/11/18 11:40 Ur Specific [place] 1.020 (1.005-1.030) 02/11/18 11:40 Urine Protein NEGATIVE mg/dL (NEGATIVE) 02/11/18 11:40 Urine Glucose (UA) NEGATIVE mg/dL (NEGATIVE) 02/11/18 11:40 Urine Ketones TRACE mg/dL (NEGATIVE) 02/11/18 11:40 Urine Blood NEGATIVE (NEGATIVE) 02/11/18 11:40 Urine Nitrate NEGATIVE (NEGATIVE) 02/11/18 11:40 Urine Bilirubin NEGATIVE (NEGATIVE) 02/11/18 11:40 Urine Urobilinogen 0.2 E.U./dL (0.2 - 1.0) 02/11/18 11:40 Ur Leukocyte Esterase NEGATIVE (NEGATIVE) 02/11/18 11:40 Urine RBC 0-2 /hpf (0-5) H 02/11/18 11:40 Urine WBC 0-2 /hpf (0-5) 02/11/18 11:40 Ur Epithelial Cells RARE /lpf (FEW) 02/11/18 11:40 Urine Bacteria NONE SEEN /hpf (NONE SEEN) 02/11/18 11:40 - Physical Exam Vitals and I&O: Vital Signs Temp 96.9 F 02/14/18 04:00 Pulse 57 02/14/18 04:00 Resp 18 02/14/18 04:00 BP 123/73 02/14/18 04:00 Pulse Ox 98 02/14/18 04:00 Intake & Output 02/13/18 02/13/18 02/14/18 06:59 18:59 06:59 Intake Total 200 1200 1300.00 Balance 200 1200 1300.00 Weight (lbs) 158.848 kg Intake: Intake, IV Amount 200 1000 1300.00 D5-0.45NS 1,000 ml @ 75 1000 1000.00 mls/hr IV .[id number] [facility] Rx #:[id number] Levofloxacin 500mg/100mL 100 500 mg In 100 ml @ 100 mls/hr IV Q24HR [facility] Rx#: [id number] metroNIDAZOLE 500mg/NS 200 200 100mL 500 mg In 100 ml @ 100 mls/hr IV Q8HR [facility] Rx #:[id number] Oral 200 Other: # Voids 4 # Bowel Movements 0 Weight Source Bedscale Active Medications: Current Medications Dicyclomine HCl (Bentyl) 10 mg PO Q6H PRN PRN Reason: ABDOMINAL PAIN/CRAMPING Stop: 04/12/18 17:05 Last Admin: 02/12/18 21:59 Dose: 10 mg Hydromorphone HCl (Dilaudid) 2 mg IVP Q4HR PRN PRN Reason: Abdominal Pain Stop: 04/12/18 20:29 Last Admin: 02/14/18 04:46 Dose: 2 mg Dextrose/Sodium Chloride (D5-0.45ns) 1,000 mls @ 75 mls/hr IV .[id number] [facility] Stop: 04/12/18 13:59 Last Admin: 02/14/18 04:47 Dose: 75 mls/hr Levofloxacin (Levaquin Pb) 500 mg in 100 mls @ 100 mls/hr IV Q24HR [facility] Stop: 04/12/18 18:59 Last Infusion: 02/13/18 19:15 Dose: Infused Metronidazole (Flagyl) 500 mg in 100 mls @ 100 mls/hr IV Q8HR [facility] Stop: 04/12/18 20:59 Last Admin: 02/14/18 04:46 Dose: 100 mls/hr Lactobacillus Rhamnosus (Culturelle 15b) 1 each PO DAILY [facility] Stop: 04/14/18 08:59 Last Admin: 02/13/18 08:07 Dose: 1 each Miscellaneous (Probiotic Screen) 1 ea MC PRN PRN PRN Reason: PROTOCOL Stop: 04/13/18 12:59 Morphine Sulfate (Morphine) 2 mg IVP Q6HR PRN PRN Reason: PAIN Stop: 04/12/18 13:59 Last Admin: 02/14/18 02:54 Dose: 2 mg Ondansetron HCl (Zofran) 4 mg IV Q4H PRN PRN Reason: Nausea / Vomiting Stop: 04/12/18 20:20 Last Admin: 02/13/18 22:20 Dose: 4 mg Pantoprazole Sodium (Protonix) 40 mg IVP DAILY [facility] Stop: 04/13/18 08:59 Last Admin: 02/13/18 08:07 Dose: 40 mg General: Alert, Oriented x3, No acute distress HEENT: Atraumatic, PERRLA Neck: Supple Cardiovascular: Regular rate, Normal S1, Normal S2 Lungs: Clear to auscultation Abdomen: Bowel sounds, Tender (LLQ pain) Extremities: no Clubbing, no Cyanosis, no Edema - Procedures Procedures: Procedures Procedure Code Date EXCIS KNEE SEMILUN CARTL 80.6 03/26/05 KNEE ARTHROSCOPY/SURGERY 08102 03/26/05 KNEE ARTHROSCOPY/SURGERY 64587 03/26/05 OT ARTHROTOMY-KNEE 80.16 03/26/05 Assessment/Plan - Problem List Patient Problems: All Active Problems LEFT UPPER QUADRANT PAIN (Acute) - Assessment Assessment: Current Active Problems Problem Status Onset LEFT UPPER QUADRANT PAIN Acute LLQ Abdominal pain Diverticulitis Nephrolithiasis - Plan Plan: Will keep NPO Will Start IV levofloxacin and IV flagyl GI consult Zofran IV PRN repeat CBC,CMP tomorrow
[2018-02-14 06:35] LABS: % BASOPHILS 0.4 % (0.0-2.0); % MONOCYTES 10.8 % (2.0-10.0); % NEUTROPHILS 54.8 % (40.0-80.0); EOSINOPHILE ABSOLUTE 0.2 Th/cmm (0.1-0.4); HEMATOCRIT 41.7 % (41.0-60); LYMPHOCYTE ABSOLUTE 1.8 Th/cmm (1.5-3.0); MEAN CELL VOLUME 86.6 fl (80-99); MEAN CORPUSCULAR HEMOGLOBIN 29.1 pg (26.0-30.0); MEAN CORPUSCULAR HGB CONC 33.6 pg (28.0-36.0); MEAN PLATELET VOLUME 7.8 fl; MONOCYTE ABSOLUTE 0.7 Th/cmm (0.3-1.0); NEUTROPHILE ABSOLUTE 3.4 Th/cmm (1.8-8.0); PLATELET COUNT 282 Th/cmm (150-400); RED BLOOD COUNT 4.81 Mil/cmm (4.30-5.70); RED CELL DISTRIBUTION WIDTH 11.9 % (11.5-20.0); WHITE BLOOD COUNT 6.1 Th/cmm (4.8-10.8)
[2018-02-14 06:48] LABS: ALB/GLOB RATIO 1.4 (1.0-1.8); ALBUMIN 3.8 gm/dL (4.2-5.5); ALKALINE PHOSPHATASE 48 U/L (34-104); ANION GAP 9.3 (7.0-16.0); BILIRUBIN,TOTAL 0.5 mg/dL (0.3-1.0); BUN - UREA NITROGEN 12 mg/dL (7-25); CALCIUM SERUM 9.1 mg/dL (8.6-10.3); CARBON DIOXIDE 27.6 mEq/L (21.0-31.0); CHLORIDE 104 mEq/L (98-107); CREATININE - SERUM 0.9 mg/dL (0.7-1.3); GFR AFRICAN-AMERICAN > 60.0 ml/min (>90); GFR NON AFRICAN-AMERICAN > 60.0 ml/min; GLUCOSE 90 mg/dL (70-105); POTASSIUM SERUM 3.9 mEq/L (3.5-5.1); SGOT 11 U/L (13-39); SGPT/ALT 14 U/L (7-52); SODIUM SERUM 137 mEq/L (136-145); TOTAL PROTEIN,SERUM 6.5 gm/dL (6.0-8.3)
--- NOTE | 2018-02-14 08:57 | GI Progress Note ---
Subjective - Review of Systems Subjective: Feels much better today Objective - Results Result Diagrams: 02/14/18 05:14 02/14/18 05:14 Recent Labs: Laboratory Last Values WBC 6.1 Th/cmm (4.8-10.8) 02/14/18 05:14 RBC 4.81 Mil/cmm (4.30-5.70) 02/14/18 05:14 Hgb 14.0 gm/dL (12-16) 02/14/18 05:14 Hct 41.7 % (41.0-60) 02/14/18 05:14 MCV 86.6 fl (80-99) 02/14/18 05:14 MCH 29.1 pg (26.0-30.0) 02/14/18 05:14 MCHC Differential 33.6 pg (28.0-36.0) 02/14/18 05:14 RDW 11.9 % (11.5-20.0) 02/14/18 05:14 Plt Count 282 Th/cmm (150-400) 02/14/18 05:14 MPV 7.8 fl 02/14/18 05:14 Neutrophils % 54.8 % (40.0-80.0) 02/14/18 05:14 Lymphocytes % 30.0 % (20.0-50.0) 02/14/18 05:14 Monocytes % 10.8 % (2.0-10.0) H 02/14/18 05:14 Eosinophils % 4.0 % (0.0-5.0) 02/14/18 05:14 Basophils % 0.4 % (0.0-2.0) 02/14/18 05:14 PT 11.2 SECONDS (9.5-11.5) 02/11/18 10:54 INR 1.08 (0.5-1.4) 02/11/18 10:54 Sodium 137 mEq/L (136-145) 02/14/18 05:14 Potassium 3.9 mEq/L (3.5-5.1) 02/14/18 05:14 Chloride 104 mEq/L (98-107) 02/14/18 05:14 Carbon Dioxide 27.6 mEq/L (21.0-31.0) 02/14/18 05:14 Anion Gap 9.3 (7.0-16.0) 02/14/18 05:14 BUN 12 mg/dL (7-25) 02/14/18 05:14 Creatinine 0.9 mg/dL (0.7-1.3) 02/14/18 05:14 Est GFR ( Amer) > 60.0 ml/min (>90) 02/14/18 05:14 Est GFR (Non-Af Amer) > 60.0 ml/min 02/14/18 05:14 BUN/Creatinine Ratio 13.3 02/14/18 05:14 Glucose 90 mg/dL (70-105) 02/14/18 05:14 Whole Bld Lactic Acid 0.64 mmol/L (0.60-1.99) 02/11/18 10:56 Calcium 9.1 mg/dL (8.6-10.3) 02/14/18 05:14 Total Bilirubin 0.5 mg/dL (0.3-1.0) 02/14/18 05:14 AST 11 U/L (13-39) L 02/14/18 05:14 ALT 14 U/L (7-52) 02/14/18 05:14 Alkaline Phosphatase 48 U/L (34-104) 02/14/18 05:14 Creatine Kinase 103 U/L (30-223) 02/11/18 10:54 Troponin I < 0.01 ng/mL (0.01-0.05) L 02/11/18 10:54 B-Natriuretic Peptide 7.4 pg/mL (5.0-100.0) 02/11/18 10:54 Total Protein 6.5 gm/dL (6.0-8.3) 02/14/18 05:14 Albumin 3.8 gm/dL (4.2-5.5) L 02/14/18 05:14 Globulin 2.7 gm/dL 02/14/18 05:14 Albumin/Globulin Ratio 1.4 (1.0-1.8) 02/14/18 05:14 Triglycerides 53 mg/dL (<150) 02/11/18 10:54 Cholesterol 156 mg/dL (<200) 02/11/18 10:54 LDL Cholesterol Direct 97 mg/dL (75-193) 02/11/18 10:54 HDL Cholesterol 55 mg/dL (23-92) 02/11/18 10:54 Amylase 19 U/L (29-103) L 02/12/18 06:29 Lipase 10 U/L (11-82) L 02/12/18 06:29 TSH 1.28 uIU/ml (0.34-5.60) 02/12/18 06:29 Urine Source CLEAN C 02/11/18 11:40 Urine Color YELLOW 02/11/18 11:40 Urine Clarity CLEAR (CLEAR) 02/11/18 11:40 Urine pH 5.5 (4.6 - 8.0) 02/11/18 11:40 Ur Specific [place] 1.020 (1.005-1.030) 02/11/18 11:40 Urine Protein NEGATIVE mg/dL (NEGATIVE) 02/11/18 11:40 Urine Glucose (UA) NEGATIVE mg/dL (NEGATIVE) 02/11/18 11:40 Urine Ketones TRACE mg/dL (NEGATIVE) 02/11/18 11:40 Urine Blood NEGATIVE (NEGATIVE) 02/11/18 11:40 Urine Nitrate NEGATIVE (NEGATIVE) 02/11/18 11:40 Urine Bilirubin NEGATIVE (NEGATIVE) 02/11/18 11:40 Urine Urobilinogen 0.2 E.U./dL (0.2 - 1.0) 02/11/18 11:40 Ur Leukocyte Esterase NEGATIVE (NEGATIVE) 02/11/18 11:40 Urine RBC 0-2 /hpf (0-5) H 02/11/18 11:40 Urine WBC 0-2 /hpf (0-5) 02/11/18 11:40 Ur Epithelial Cells RARE /lpf (FEW) 02/11/18 11:40 Urine Bacteria NONE SEEN /hpf (NONE SEEN) 02/11/18 11:40 - Physical Exam Vitals and I&O: Vital Signs Temp 96.9 F 02/14/18 04:00 Pulse 57 02/14/18 04:00 Resp 18 02/14/18 04:00 BP 123/73 02/14/18 04:00 Pulse Ox 98 02/14/18 04:00 Intake & Output 02/13/18 02/14/18 02/14/18 18:59 06:59 18:59 Intake Total 1200 1400.00 Balance 1200 1400.00 Weight (lbs) 158.848 kg 158.304 kg Intake: Intake, IV Amount 1000 1400.00 D5-0.45NS 1,000 ml @ 75 1000 1000.00 mls/hr IV .[id number] [facility] Rx #:[id number] Levofloxacin 500mg/100mL 100 500 mg In 100 ml @ 100 mls/hr IV Q24HR [facility] Rx#: [id number] metroNIDAZOLE 500mg/NS 300 100mL 500 mg In 100 ml @ 100 mls/hr IV Q8HR [facility] Rx #:[id number] Oral 200 Other: # Voids 4 4 # Bowel Movements 0 Weight Source Bedscale Bedscale Active Medications: Current Medications Dicyclomine HCl (Bentyl) 10 mg PO Q6H PRN PRN Reason: ABDOMINAL PAIN/CRAMPING Stop: 04/12/18 17:05 Last Admin: 02/12/18 21:59 Dose: 10 mg Hydromorphone HCl (Dilaudid) 2 mg IVP Q4HR PRN PRN Reason: Abdominal Pain Stop: 04/12/18 20:29 Last Admin: 02/14/18 04:46 Dose: 2 mg Dextrose/Sodium Chloride (D5-0.45ns) 1,000 mls @ 75 mls/hr IV .[id number] [facility] Stop: 04/12/18 13:59 Last Admin: 02/14/18 04:47 Dose: 75 mls/hr Levofloxacin (Levaquin Pb) 500 mg in 100 mls @ 100 mls/hr IV Q24HR [facility] Stop: 04/12/18 18:59 Last Infusion: 02/13/18 19:15 Dose: Infused Metronidazole (Flagyl) 500 mg in 100 mls @ 100 mls/hr IV Q8HR [facility] Stop: 04/12/18 20:59 Last Infusion: 02/14/18 05:46 Dose: Infused Lactobacillus Rhamnosus (Culturelle 15b) 1 each PO DAILY [facility] Stop: 04/14/18 08:59 Last Admin: 02/13/18 08:07 Dose: 1 each Miscellaneous (Probiotic Screen) 1 ea MC PRN PRN PRN Reason: PROTOCOL Stop: 04/13/18 12:59 Morphine Sulfate (Morphine) 2 mg IVP Q6HR PRN PRN Reason: PAIN Stop: 04/12/18 13:59 Last Admin: 02/14/18 02:54 Dose: 2 mg Ondansetron HCl (Zofran) 4 mg IV Q4H PRN PRN Reason: Nausea / Vomiting Stop: 04/12/18 20:20 Last Admin: 02/13/18 22:20 Dose: 4 mg Pantoprazole Sodium (Protonix) 40 mg IVP DAILY [facility] Stop: 04/13/18 08:59 Last Admin: 02/13/18 08:07 Dose: 40 mg General: Alert, Oriented x3, No acute distress HEENT: Atraumatic, PERRLA Neck: Supple Cardiovascular: Regular rate, Normal S1, Normal S2 Lungs: Clear to auscultation Abdomen: Bowel sounds, Tender (LLQ pain) Extremities: no Clubbing, no Cyanosis, no Edema - Procedures Procedures: Procedures Procedure Code Date EXCIS KNEE SEMILUN CARTL 80.6 03/26/05 KNEE ARTHROSCOPY/SURGERY 84826 03/26/05 KNEE ARTHROSCOPY/SURGERY 42524 03/26/05 OT ARTHROTOMY-KNEE 80.16 03/26/05 Assessment/Plan - Problem List Patient Problems: All Active Problems LEFT UPPER QUADRANT PAIN (Acute) - Assessment Assessment: # Descending diverticulitis, uncomplicated # Sepsis As seen on CT scan. Start clears and advance as tolerated. If he has no issues with diet, can likely dc home Plan: - cont abx, needs outpt 7 day course - start diet as above. - pt needs colonoscopy 6 weeks after resolution - consider sigmoid/descending resection given this is 3rd episode.
[2018-02-14] MEDS: Lactobacillus Rhamnosus GG 15 Billion CFU CAP.SPRINK PO SCH (09:10)
== END 2018-02-14 18:05 | disposition home or self-care (01) | DRG 720 ==
LOC: ER 10:10 → MSI 14:48
PROVIDERS: ADMIT Family Medicine; ATTEND Family Medicine
DX: A41.9 Sepsis, unspecified organism (principal); K85.90 Acute pancreatitis without necrosis or infection, unspecified; K57.32 Diverticulitis of large intestine without perforation or abscess without bleeding; K76.0 Fatty (change of) liver, not elsewhere classified; Z68.41 Body mass index [BMI] 40.0-44.9, adult; N20.0 Calculus of kidney; E66.9 Obesity, unspecified; R31.9 Hematuria, unspecified
CPT/HCPCS: 36415-UA; 71045-TC; 80053-TC; 80061-TC; 81001-TC; 82150-TC; 82550-TC; 83605; 83690-TC; 83880-TC; 84443-TC; 84484-TC; 85025-TC; 85610-TC; 90799; 93005; 94760; 96374; 96375; C9113; J1170; J1885; J1956; J2405; J7030

== ENCOUNTER 2018-09-20 09:29 | Emergency (ER) | payer MEDICAID ==
--- NOTE | 2018-09-20 16:58 | ED Physician Chart ---
ED Chief Complaint/HPI - Patient Information Date Seen:: 09/20/18 Time Seen:: 09:40 Chief Complaint:: left Allergies:: Allergies Allergy/AdvReac Type Severity Reaction Status Date / Time No Known Allergies Allergy Verified 09/20/18 09:35 Vitals:: Vital Signs - 8 hr 09/20/18 09/20/18 09:40 11:09 Temp 97.9 F 97.9 F HR 81 81 RR 18 18 BP 135/69 135/69 O2 Sat % 98 99 Historian:: Patient Review:: Nurse's Note Reviewed ED Review of Systems - Review of Systems General/Constitutional: No fever, No chills, No weight loss, No weakness, No diaphoresis, No edema, No loss of appetite Skin: No skin lesions, No rash, No bruising Head: No headache, No light-headedness Eyes: No loss of vision, No pain, No diplopia ENT: No earache, No nasal drainage, No sore throat, No tinnitus Neck: No neck pain, No swelling, No thyromegaly, No stiffness, No mass noted Cardio Vascular: No chest pain, No palpitations, No PND, No orthopnea, No edema Pulmonary: No SOB, No cough, No sputum, No wheezing GI: No nausea, No vomiting, No diarrhea, No pain, No melena, No hematochezia, No constipation, No hematemesis G/U: No dysuria, No frequency, No hematuria Musculoskeletal: Bone or joint pain Psychiatric: No prior psych history, No depression, No anxiety, No suicidal ideation Hematopoietic: No bruising, No lymphadenopathy Allergic/Immuno: No urticaria, No angioedema Neurological: No syncope, No focal symptoms, No weakness, No paresthesia, No headache, No seizure, No dizziness, No confusion, No vertigo ED Past Medical History - Past Medical History Obtainable: Yes Past Medical History: No significant medical hx Family Medical History - Family Member Maternal History Unknown: Yes Hx Family Diabetes: Yes FATHER History Unknown: Yes Living Status: Still Living Hx Family Diabetes: Yes ED Physical Exam - Physical Examination General/Constitutional: Awake, Alert, Non-toxic appearing Other Gen/Cons comments:: morbidly obese Head: Atraumatic Eyes: Lids, conjuctiva normal, PERRL, EOMI Other Skin comments:: minimal ecchymosis stating to form near base of left small toe. Hemosiderin deposits and early signs of venous stasis present. Other Extremities comments:: minimal ecchymosis stating to form near base of left small toe. Tenderness to palpation in the left lateral foot area. NV intact. Hemosiderin deposits and early signs of venous stasis present Neuro/Psych: Alert/oriented, Normal sensory exam, Judgement/insight normal, Mood normal, No focal deficits ED Assessment - Assessment General Assessment: Left foot xray: proximal phalanx fracture of left small toe. CD of xrays given to patient. Splint Care: Splint applied Post Procedure/Splint Exam: No Active Bleeding, Full Range of Motion, Neuro/ Vascular Exam Comments:: left short leg splint applied after adequate padding at the heel level. Fiberglass splint applied with ankle at 90 degrees. Two 6 inch jael bandages applied. Tape applied to prevent unravelling of jael bandages. ED Septic Shock - . Is Septic Shock (SBP<90, OR Lactate>4 mmol\L) present?: No - <6hrs of presentation: Vital Signs: Vital Signs - 8 hr 09/20/18 09/20/18 09:40 11:09 Temp 97.9 F 97.9 F HR 81 81 RR 18 18 BP 135/69 135/69 O2 Sat % 98 99 ED Reassessment (Disposition) - Reassessment Reassessment Condition:: Improved - Diagnosis Diagnosis:: Left small toe proximal phalanx fracture. - Aftercare/Follow up Instructions Aftercare/Follow-Up Instructions:: Refer to Discharge Instructions Notes:: follow up with primary care physician for referral to an orthopedist. Medication Prescribed:: [place] 7.5 # 30 - Patient Disposition Discharge/Transfer:: Home Condition at Disposition:: Stable, Improved
--- NOTE | 2018-09-21 08:05 | Diagnostic Imaging Report ---
Left foot (3 views) HISTORY: Pain, trauma Normal bone density. No focal lesions. No fractures. Joint spaces appear normal. Minimal spur formation noted off the posterior margin of the calcaneus. IMPRESSION: 1. No acute abnormalities. 2. Minimal spur formation off the posterior margin of the calcaneus In the presence of recent trauma and persistent symptoms, a repeat radiograph in 5-7 days may be helpful for detection of a subtle or occult fracture.
== END 2018-09-20 11:30 | disposition home or self-care (01) ==
LOC: ER 09:29
DX: S92.512A Displaced fracture of proximal phalanx of left lesser toe(s), initial encounter for closed fracture (principal); X58.XXXA Exposure to other specified factors, initial encounter; Y93.89 Activity, other specified; Y92.89 Other specified places as the place of occurrence of the external cause; Y99.8 Other external cause status
CPT/HCPCS: 73630-TC-LT; Z7502